=== PATIENT | male | born 1950 | race Caucasian/White ===

== ENCOUNTER 2020-09-22 20:04 | Inpatient (IN) | payer MEDICARE, OTHER ==
[~2020-09-22] VITALS: Ht 165.1 cm; Wt 95.3 kg
[2020-09-22 20:33] LABS: ABG A-A DIFF O2 625.7 mmHg (10-20.0); ABG BASE EXCESS -4.6 mmol/L (-2.0-3.0); ABG CARBOXYHEMOGLOBIN 0.8 % (0.0-1.5); ABG HCO3 21.5 mmol/L (22.0-26.0); ABG METHEMOGLOBIN 0.2 % (0.0-1.5); ABG OXYGEN CONTENT 17.8 mL/dL (15.0-23.0); ABG OXYGEN SATURATION 91.8 % (95.0-98.0); ABG OXYHEMOGLOBIN 90.9 % (94.0-100.0); ABG PCO2 30 mmHg (35-45); ABG PH 7.437 (7.35-7.450); ABG TOTAL HEMOGLOBIN 13.9 G/dL (12.0-18.0); PO2, ARTERIAL BG 59.1 mmHg (75.0-83.0); SOURCE, BLOOD GAS ARTERIAL; TEMPERATURE, FAHRENHEIT, BG 97.5 FAHREN (96.0-98.6)
[2020-09-22 20:34] LABS: O2 DEVICE,BLOOD GAS NRB (ROOM AIR); SITE, BLOOD GAS LFT BRACHIAL
[2020-09-22 20:36] LABS: BASOPHILS % (AUTO) 0.5 % (0.0-2.0); EOSINOPHILS % (AUTO) 0.1 % (1.0-6.0); HEMATOCRIT 38.5 % (41-53); LYMPHOCYTES # (AUTO) 0.5 K/uL (1.0-4.8); LYMPHOCYTES % (AUTO) 7.2 % (22.0-44.0); MEAN CORPUSCULAR HEMOGLOBIN 30.7 pg (26.0-34.0); MEAN CORPUSCULAR HGB CONC 33.7 G/dL (31.0-37.0); MEAN CORPUSCULAR VOLUME 91 fL (80-100); MONOCYTES # (AUTO) 0.3 K/uL (0.1-1.0); MONOCYTES % (AUTO) 4.8 % (2.0-9.0); PLATELET COUNT (AUTO) 191 K/uL (150-450); RED BLOOD CELL COUNT(AUTO) 4.22 MIL/uL (4.50-5.90); RED CELL DISTRIBUTION WIDTH 14.1 % (11.5-14.5)
[2020-09-22] MEDS: ACETAMINOPHEN 325 MG TABLET PO ONE ×2 (20:45→21:22)
[2020-09-22] MEDS ORDERED: DEXAMETHASONE SOD PHOS 4 MG/ML VIAL IVP ONE (20:45)
[2020-09-22] MEDS ORDERED: SODIUM CHLORIDE 0.9% 250 ML IV ONE (20:45)
[2020-09-22 20:54] LABS: NEUTROPHILS % (AUTO) 87.4 % (40.0-70.0)
[2020-09-22 21:07] LABS: COVID AG,FIA SOURCE NASOPHARYNGEAL
[2020-09-22 21:28] LABS: ALBUMIN 2.7 g/dL (3.4-5.0); BILIRUBIN,TOTAL 1.2 mg/dL (0.1-1.0); C-REACTIVE PROTEIN QUANT 22.96 mg/dL (0.00-0.30); CREATININE 2.94 mg/dL (0.60-1.30); POTASSIUM 4.3 mmol/L (3.5-5.1); TOTAL PROTEIN, SERUM 7.1 g/dL (6.4-8.2)
[2020-09-22 21:52] LABS: INFLUENZA TYPE A NEGATIVE FOR TYPE A (NEGATIVE); INFLUENZA TYPE B NEGATIVE FOR TYPE B (NEGATIVE)
[2020-09-22] MEDS ORDERED: DEXTROSE 50%-WATER 25 GM/50 ML SYRINGE IVP PRN (22:00)
[2020-09-22] MEDS ORDERED: ALBUTEROL SULFATE HFA 90 MCG/PUFF 8 GM INHALER IH PRN (22:00)
[2020-09-22] MEDS ORDERED: ONDANSETRON HCL 4 MG/2 ML VIAL IVP PRN (22:00)
[2020-09-22] MEDS ORDERED: ACETAMINOPHEN 325 MG TABLET PO PRN ×2 (22:00)
[2020-09-22] MEDS ORDERED: 0.9% SODIUM CHLORIDE 10 ML SYRINGE IVP PRN (22:00)
[2020-09-22] MEDS ORDERED: SODIUM CHLORIDE 0.9% 1,000 ML IV ONE (22:00)
[2020-09-22] MEDS ORDERED: REMDESIVIR 200 MG in SODIUM CHLORIDE 0.9% 250 ML IV ONE (23:00)
[2020-09-22] MEDS: APIXABAN 2.5 MG TABLET PO SCH (23:06)
[2020-09-22] MEDS: AZITHROMYCIN 500 MG/NS 250 ML IV SCH (23:06)
[2020-09-23] VITALS (7 sets, daily range): BP systolic 115–147; BP diastolic 54–88
[2020-09-23] MEDS: INSULIN LISPRO 100 UNITS/ML SQ PRN ×4 (06:22→20:08)
[2020-09-23 06:46] LABS: BASOPHILS % (AUTO) 0.3 % (0.0-2.0); EOSINOPHILS % (AUTO) 0 % (1.0-6.0); HEMATOCRIT 35.5 % (41-53); HEMOGLOBIN 12.1 g/dL (13.5-17.5); LYMPHOCYTES # (AUTO) 0.5 K/uL (1.0-4.8); LYMPHOCYTES % (AUTO) 7.4 % (22.0-44.0); MEAN CORPUSCULAR HEMOGLOBIN 31.3 pg (26.0-34.0); MEAN CORPUSCULAR HGB CONC 34.1 G/dL (31.0-37.0); MEAN CORPUSCULAR VOLUME 92 fL (80-100); MONOCYTES # (AUTO) 0.2 K/uL (0.1-1.0); MONOCYTES % (AUTO) 3.1 % (2.0-9.0); NEUTROPHILS # (AUTO) 6.4 K/uL (1.8-7.7); PLATELET COUNT (AUTO) 178 K/uL (150-450); RED BLOOD CELL COUNT(AUTO) 3.87 MIL/uL (4.50-5.90); RED CELL DISTRIBUTION WIDTH 14.4 % (11.5-14.5)
[2020-09-23 07:09] LABS: NEUTROPHILS % (AUTO) 89.2 % (40.0-70.0)
[2020-09-23 07:30] LABS: CALCIUM, TOTAL 7.8 mg/dL (8.8-10.5); CREATININE 2.56 mg/dL (0.60-1.30); POTASSIUM 4.2 mmol/L (3.5-5.1)
[2020-09-23] MEDS: APIXABAN 2.5 MG TABLET PO SCH ×2 (08:56→20:09)
[2020-09-23] MEDS: FAMOTIDINE 20 MG TABLET PO SCH (08:56)
[2020-09-23] MEDS: DOCUSATE SODIUM 100 MG CAPSULE PO SCH ×2 (09:00→20:09)
[2020-09-23] MEDS: SODIUM CHLORIDE 0.9% 1,000 ML IV SCH ×2 (10:24→23:37)
[2020-09-23 16:40] LABS: GLUCOMETER DEV NAME(LOC) 5N.3; GLUCOSE,POINT OF CARE 178 MG/DL (70-110)
[2020-09-23 16:40] LABS: GLUCOMETER DEV NAME(LOC) 5N.3; GLUCOSE,POINT OF CARE 217 MG/DL (70-110)
[2020-09-23 16:40] LABS: GLUCOMETER DEV NAME(LOC) 5N.3; GLUCOSE,POINT OF CARE 226 MG/DL (70-110)
[2020-09-23] MEDS: ZINC SULFATE 220 MG CAPSULE PO SCH (20:09)
[2020-09-23] MEDS: CHOLECALCIFEROL (VIT D3) 1,000 UNITS [25 MCG] TABLET PO SCH (20:09)
[2020-09-23] MEDS: ASCORBIC ACID 500 MG TABLET PO SCH (20:09)
[2020-09-23] MEDS: DEXAMETHASONE SOD PHOS 4 MG/ML VIAL IVP SCH (20:10)
[2020-09-23] MEDS: AZITHROMYCIN 500 MG/NS 250 ML IV SCH (20:12)
[2020-09-23] MEDS: BENZONATATE 100 MG CAPSULE PO PRN (20:59)
[2020-09-23] MEDS: ACETAMINOPHEN 325 MG TABLET PO PRN (20:59)
[2020-09-23] MEDS ORDERED: REMDESIVIR 100 MG in SODIUM CHLORIDE 0.9% 250 ML IV SCH (23:00)
[2020-09-23 23:13] LABS: GLUCOMETER DEV NAME(LOC) 5N.1B; GLUCOSE,POINT OF CARE 169 MG/DL (70-110)
[2020-09-23 23:13] LABS: GLUCOMETER DEV NAME(LOC) 5N.1B; GLUCOSE,POINT OF CARE 217 MG/DL (70-110)
[2020-09-23 23:13] LABS: GLUCOMETER DEV NAME(LOC) 5N.1B; GLUCOSE,POINT OF CARE 192 MG/DL (70-110)
[2020-09-24] MEDS: INSULIN LISPRO 100 UNITS/ML SQ PRN ×4 (05:29→21:36)
[2020-09-24 05:37] VITALS: BP 127/70
[2020-09-24 07:25] VITALS: BP 123/67
[2020-09-24 07:38] LABS: GLUCOMETER DEV NAME(LOC) 5N.1B; GLUCOSE,POINT OF CARE 171 MG/DL (70-110)
[2020-09-24 08:11] LABS: ALBUMIN 2.2 g/dL (3.4-5.0); BILIRUBIN,TOTAL 0.6 mg/dL (0.1-1.0); CALCIUM, TOTAL 7.6 mg/dL (8.8-10.5); CREATININE 1.56 mg/dL (0.60-1.30); POTASSIUM 4.1 mmol/L (3.5-5.1); TOTAL PROTEIN, SERUM 6.2 g/dL (6.4-8.2)
[2020-09-24] MEDS: ZINC SULFATE 220 MG CAPSULE PO SCH (08:50)
[2020-09-24] MEDS: APIXABAN 2.5 MG TABLET PO SCH ×2 (08:50→20:14)
[2020-09-24] MEDS: ASCORBIC ACID 500 MG TABLET PO SCH (08:50)
[2020-09-24] MEDS: CHOLECALCIFEROL (VIT D3) 1,000 UNITS [25 MCG] TABLET PO SCH (08:50)
[2020-09-24] MEDS: DEXAMETHASONE SOD PHOS 4 MG/ML VIAL IVP SCH (08:51)
[2020-09-24] MEDS: DOCUSATE SODIUM 100 MG CAPSULE PO SCH ×2 (08:51→20:15)
[2020-09-24] MEDS: FAMOTIDINE 20 MG TABLET PO SCH (08:51)
[2020-09-24] MEDS ORDERED: REMDESIVIR 200 MG in SODIUM CHLORIDE 0.9% 250 ML IV ONE (10:00)
[2020-09-24] MEDS ORDERED: VANCOMYCIN HCL 1 GM/D5% WATER 200 ML IV ONE ×2 (10:30→13:00)
[2020-09-24 11:56] VITALS: BP 146/80
[2020-09-24 15:54] VITALS: BP 136/72
[2020-09-24] MEDS: SODIUM CHLORIDE 0.9% 1,000 ML IV SCH (20:14)
[2020-09-24] MEDS: AZITHROMYCIN 500 MG/NS 250 ML IV SCH (20:17)
[2020-09-24 20:29] VITALS: BP 155/82
[2020-09-24 20:49] LABS: GLUCOMETER DEV NAME(LOC) 5N.1B; GLUCOSE,POINT OF CARE 189 MG/DL (70-110)
[2020-09-24 20:49] LABS: GLUCOMETER DEV NAME(LOC) 5S.1; GLUCOSE,POINT OF CARE 225 MG/DL (70-110)
[2020-09-24 20:50] LABS: GLUCOMETER DEV NAME(LOC) 5N.1B; GLUCOSE,POINT OF CARE 214 MG/DL (70-110)
[2020-09-24] MEDS: ACETAMINOPHEN 325 MG TABLET PO PRN (21:39)
[2020-09-25 00:33] VITALS: BP 128/64
[2020-09-25 05:29] VITALS: BP 135/72
[2020-09-25] MEDS: BENZONATATE 100 MG CAPSULE PO PRN ×2 (06:15→16:10)
[2020-09-25] MEDS: SODIUM CHLORIDE 0.9% 1,000 ML IV SCH ×2 (06:15→18:32)
[2020-09-25] MEDS: INSULIN LISPRO 100 UNITS/ML SQ PRN ×4 (06:24→21:30)
[2020-09-25 07:10] VITALS: BP 131/66
[2020-09-25 08:18] LABS: ALBUMIN 2.2 g/dL (3.4-5.0); BILIRUBIN,TOTAL 0.7 mg/dL (0.1-1.0); C-REACTIVE PROTEIN QUANT 8.75 mg/dL (0.00-0.30); CALCIUM, TOTAL 7.7 mg/dL (8.8-10.5); CREATININE 1.38 mg/dL (0.60-1.30); POTASSIUM 3.9 mmol/L (3.5-5.1); TOTAL PROTEIN, SERUM 6.4 g/dL (6.4-8.2)
[2020-09-25] MEDS: VANCOMYCIN HCL 1.25 GM in DEXTROSE 5%-WATER 250 ML IV SCH (08:57)
[2020-09-25] MEDS: DEXAMETHASONE SOD PHOS 4 MG/ML VIAL IVP SCH (08:57)
[2020-09-25] MEDS: APIXABAN 2.5 MG TABLET PO SCH (08:58)
[2020-09-25] MEDS: ZINC SULFATE 220 MG CAPSULE PO SCH (08:58)
[2020-09-25] MEDS: FAMOTIDINE 20 MG TABLET PO SCH (08:58)
[2020-09-25] MEDS: ASCORBIC ACID 500 MG TABLET PO SCH (08:58)
[2020-09-25] MEDS: CHOLECALCIFEROL (VIT D3) 1,000 UNITS [25 MCG] TABLET PO SCH (08:58)
[2020-09-25] MEDS: DOCUSATE SODIUM 100 MG CAPSULE PO SCH ×2 (08:58→20:28)
[2020-09-25] MEDS: REMDESIVIR 100 MG in SODIUM CHLORIDE 0.9% 250 ML IV SCH (10:11)
[2020-09-25 10:22] VITALS: BP 142/84
[2020-09-25 12:59] LABS: GLUCOMETER DEV NAME(LOC) 5N.1B; GLUCOSE,POINT OF CARE 187 MG/DL (70-110)
[2020-09-25 15:21] VITALS: BP 138/78
[2020-09-25 17:45] LABS: GLUCOMETER DEV NAME(LOC) 5N.1B; GLUCOSE,POINT OF CARE 165 MG/DL (70-110)
[2020-09-25] MEDS: ACETAMINOPHEN 325 MG TABLET PO PRN (18:32)
[2020-09-25] MEDS: APIXABAN 5 MG TABLET PO SCH (20:28)
[2020-09-25 20:38] LABS: GLUCOMETER DEV NAME(LOC) 5N.3; GLUCOSE,POINT OF CARE 162 MG/DL (70-110)
[2020-09-25] MEDS: AZITHROMYCIN 500 MG/NS 250 ML IV SCH (21:37)
[2020-09-26 00:28] LABS: GLUCOMETER DEV NAME(LOC) 5N.1B; GLUCOSE,POINT OF CARE 222 MG/DL (70-110)
[2020-09-26] MEDS: BENZONATATE 100 MG CAPSULE PO PRN (02:39)
[2020-09-26 03:53] VITALS: BP 133/72
[2020-09-26 08:02] LABS: GLUCOMETER DEV NAME(LOC) 5N.1B; GLUCOSE,POINT OF CARE 101 MG/DL (70-110)
[2020-09-26 08:27] LABS: ALBUMIN 2.4 g/dL (3.4-5.0); BILIRUBIN,TOTAL 0.9 mg/dL (0.1-1.0); C-REACTIVE PROTEIN QUANT 18.61 mg/dL (0.00-0.30); CREATININE 1.23 mg/dL (0.60-1.30); POTASSIUM 3.7 mmol/L (3.5-5.1); TOTAL PROTEIN, SERUM 6.5 g/dL (6.4-8.2)
[2020-09-26] MEDS: ASCORBIC ACID 500 MG TABLET PO SCH (09:03)
[2020-09-26] MEDS: DOCUSATE SODIUM 100 MG CAPSULE PO SCH ×2 (09:03→21:12)
[2020-09-26] MEDS: VANCOMYCIN HCL 1.25 GM in DEXTROSE 5%-WATER 250 ML IV SCH (09:03)
[2020-09-26] MEDS: DEXAMETHASONE SOD PHOS 4 MG/ML VIAL IVP SCH (09:03)
[2020-09-26] MEDS: APIXABAN 5 MG TABLET PO SCH ×2 (09:03→21:12)
[2020-09-26] MEDS: FAMOTIDINE 20 MG TABLET PO SCH (09:03)
[2020-09-26] MEDS: CHOLECALCIFEROL (VIT D3) 1,000 UNITS [25 MCG] TABLET PO SCH (09:04)
[2020-09-26] MEDS: ZINC SULFATE 220 MG CAPSULE PO SCH (09:04)
[2020-09-26] MEDS: SODIUM CHLORIDE 0.9% 1,000 ML IV SCH ×2 (09:04→23:44)
[2020-09-26 09:11] VITALS: BP 135/71
[2020-09-26] MEDS: REMDESIVIR 100 MG in SODIUM CHLORIDE 0.9% 250 ML IV SCH (10:52)
[2020-09-26 12:00] VITALS: BP 106/62
[2020-09-26] MEDS: INSULIN LISPRO 100 UNITS/ML SQ PRN (12:50)
[2020-09-26 16:00] VITALS: BP 130/73
[2020-09-26 16:05] LABS: GLUCOSE,POINT OF CARE 161 MG/DL (70-110)
[2020-09-26 19:39] LABS: GLUCOSE,POINT OF CARE 118 MG/DL (70-110)
[2020-09-26 20:00] VITALS: BP 145/76
[2020-09-26] MEDS: AZITHROMYCIN 500 MG/NS 250 ML IV SCH (21:13)
[2020-09-27] VITALS: BP 141/88
[2020-09-27] MEDS: BENZONATATE 100 MG CAPSULE PO PRN (02:54)
[2020-09-27] MEDS: LORazepam 2 MG/ML VIAL IVP PRN (04:00)
[2020-09-27] MEDS ORDERED: RAPID SEQUENCE KIT [RSI] 1 EACH KIT MISC ONE ×2 (04:13→05:12)
[2020-09-27] MEDS ORDERED: SUCCINYLCHOLINE CHLORIDE 20 MG/ML 10 ML VIAL ONE ×2 (04:33→05:13)
[2020-09-27 04:45] LABS: ABG A-A DIFF O2 635.3 mmHg (10-20.0); ABG BASE EXCESS -9.2 mmol/L (-2.0-3.0); ABG CARBOXYHEMOGLOBIN 1.1 % (0.0-1.5); ABG HCO3 17.1 mmol/L (22.0-26.0); ABG METHEMOGLOBIN 0.3 % (0.0-1.5); ABG OXYGEN CONTENT 13.9 mL/dL (15.0-23.0); ABG OXYHEMOGLOBIN 72.7 % (94.0-100.0); ABG PCO2 38 mmHg (35-45); ABG TOTAL HEMOGLOBIN 13.6 G/dL (12.0-18.0); PO2, ARTERIAL BG 41.1 mmHg (75.0-83.0); SOURCE, BLOOD GAS ARTERIAL; TEMPERATURE, FAHRENHEIT, BG 97.5 FAHREN (96.0-98.6)
[2020-09-27 04:46] LABS: ABG OXYGEN SATURATION 73.7 % (95.0-98.0); INSPIRATORY TIME, BG 0.9 SEC; O2 DEVICE,BLOOD GAS BIPAP (ROOM AIR); SITE, BLOOD GAS RT BRACHIAL; SPONTANEOUS VT, BG 1205 ml
[2020-09-27] MEDS ORDERED: SODIUM CHLORIDE 0.9% 500 ML IV ONE ×3 (05:08→22:30)
[2020-09-27] MEDS ORDERED: NOREPINEPHRINE 4 MG/D5%-WATER 250 ML IV ONE (05:27)
[2020-09-27] MEDS: NOREPINEPHRINE 4 MG/D5%-WATER 250 ML IV PRN ×3 (05:30→16:22)
[2020-09-27] MEDS ORDERED: MIDAZOLAM HCL 2 MG/2 ML VIAL IVP PRN (05:30)
[2020-09-27 05:46] LABS: BASOPHILS % (AUTO) 0.2 % (0.0-2.0); EOSINOPHILS % (AUTO) 0.1 % (1.0-6.0); HEMATOCRIT 37.7 % (41-53); HEMOGLOBIN 12.5 g/dL (13.5-17.5); LYMPHOCYTES # (AUTO) 0.8 K/uL (1.0-4.8); LYMPHOCYTES % (AUTO) 5.7 % (22.0-44.0); MEAN CORPUSCULAR HGB CONC 33.3 G/dL (31.0-37.0); MEAN CORPUSCULAR VOLUME 93 fL (80-100); MONOCYTES # (AUTO) 0.5 K/uL (0.1-1.0); MONOCYTES % (AUTO) 3.3 % (2.0-9.0); NEUTROPHILS # (AUTO) 12.5 K/uL (1.8-7.7); PLATELET COUNT (AUTO) 250 K/uL (150-450); RED BLOOD CELL COUNT(AUTO) 4.04 MIL/uL (4.50-5.90); RED CELL DISTRIBUTION WIDTH 14.9 % (11.5-14.5)
[2020-09-27 05:47] LABS: NEUTROPHILS % (AUTO) 90.7 % (40.0-70.0)
[2020-09-27 06:19] LABS: ALBUMIN 2.2 g/dL (3.4-5.0); CALCIUM, TOTAL 7.6 mg/dL (8.8-10.5); CREATININE 1.47 mg/dL (0.60-1.30); TOTAL PROTEIN, SERUM 6.3 g/dL (6.4-8.2); VANCOMYCIN,RANDOM 4.4 mcg/mL (25.0-50.0)
[2020-09-27 06:46] LABS: C-REACTIVE PROTEIN QUANT 29.03 mg/dL (0.00-0.30)
[2020-09-27] MEDS ORDERED: ROCURONIUM BROMIDE 10 MG/ML 5 ML VIAL IVP ONE (07:00)
[2020-09-27] MEDS ORDERED: NOREPINEPHRINE 4 MG/D5%-WATER 250 ML IV PRN (07:00)
[2020-09-27 08:00] VITALS: BP 133/62
[2020-09-27 08:27] LABS: ABG A-A DIFF O2 595.2 mmHg (10-20.0); ABG BASE EXCESS -11.2 mmol/L (-2.0-3.0); ABG CARBOXYHEMOGLOBIN 1.2 % (0.0-1.5); ABG HCO3 15.3 mmol/L (22.0-26.0); ABG METHEMOGLOBIN 0.3 % (0.0-1.5); ABG OXYGEN CONTENT 16.9 mL/dL (15.0-23.0); ABG OXYGEN SATURATION 89.1 % (95.0-98.0); ABG OXYHEMOGLOBIN 87.8 % (94.0-100.0); ABG PCO2 56 mmHg (35-45); ABG PH 7.124 (7.35-7.450); ABG TOTAL HEMOGLOBIN 13.7 G/dL (12.0-18.0); SOURCE, BLOOD GAS ARTERIAL; TEMPERATURE, FAHRENHEIT, BG 98.3 FAHREN (96.0-98.6)
[2020-09-27 08:28] LABS: O2 DEVICE,BLOOD GAS VENTILATOR (ROOM AIR); PEEP,BG 10 cm H2O; SITE, BLOOD GAS ARTERIAL LINE; SPONTANEOUS VT, BG 444 ml; VT, ABG 450 ml
[2020-09-27] MEDS: PROPOFOL 1000 MG/ISO-OSM 100 ML IV PRN ×3 (08:41→15:58)
[2020-09-27] MEDS: VANCOMYCIN HCL 1.25 GM in DEXTROSE 5%-WATER 250 ML IV SCH (08:43)
[2020-09-27] MEDS: FentaNYL CIT 1000MCG/D5%-WATER 100 ML IV PRN ×3 (09:07→18:53)
[2020-09-27 09:30] LABS: GLUCOSE,POINT OF CARE 163 MG/DL (70-110)
[2020-09-27 09:30] LABS: GLUCOSE,POINT OF CARE 150 MG/DL (70-110)
[2020-09-27] MEDS: DEXAMETHASONE SOD PHOS 4 MG/ML VIAL IVP SCH (09:48)
[2020-09-27 10:05] LABS: BASOPHILS % (AUTO) 0.1 % (0.0-2.0); EOSINOPHILS % (AUTO) 0 % (1.0-6.0); HEMATOCRIT 39.5 % (41-53); HEMOGLOBIN 12.7 g/dL (13.5-17.5); LYMPHOCYTES # (AUTO) 0.3 K/uL (1.0-4.8); LYMPHOCYTES % (AUTO) 2.1 % (22.0-44.0); MEAN CORPUSCULAR HGB CONC 32.1 G/dL (31.0-37.0); MEAN CORPUSCULAR VOLUME 94 fL (80-100); MONOCYTES # (AUTO) 0.6 K/uL (0.1-1.0); MONOCYTES % (AUTO) 3.5 % (2.0-9.0); NEUTROPHILS # (AUTO) 15.2 K/uL (1.8-7.7); NEUTROPHILS % (AUTO) 94.3 % (40.0-70.0); PLATELET COUNT (AUTO) 257 K/uL (150-450); RED BLOOD CELL COUNT(AUTO) 4.21 MIL/uL (4.50-5.90); RED CELL DISTRIBUTION WIDTH 15.8 % (11.5-14.5)
[2020-09-27] MEDS: ZINC SULFATE 220 MG CAPSULE PO SCH (10:12)
[2020-09-27] MEDS: FAMOTIDINE 20 MG TABLET PO SCH (10:12)
[2020-09-27] MEDS: DOCUSATE SODIUM 100 MG CAPSULE PO SCH ×2 (10:12→21:41)
[2020-09-27] MEDS: ASCORBIC ACID 500 MG TABLET PO SCH (10:12)
[2020-09-27] MEDS: APIXABAN 5 MG TABLET PO SCH ×2 (10:12→21:41)
[2020-09-27] MEDS: CHOLECALCIFEROL (VIT D3) 1,000 UNITS [25 MCG] TABLET PO SCH (10:12)
[2020-09-27 10:14] LABS: CALCIUM, TOTAL 7.5 mg/dL (8.8-10.5); CREATININE 1.85 mg/dL (0.60-1.30); POTASSIUM 4.6 mmol/L (3.5-5.1)
[2020-09-27] MEDS ORDERED: PHENYLEPHRINE 200 MG/D5%-WATER 250 ML IV PRN (10:15)
[2020-09-27] MEDS: REMDESIVIR 100 MG in SODIUM CHLORIDE 0.9% 250 ML IV SCH (10:18)
[2020-09-27 10:20] LABS: BILIRUBIN,TOTAL 0.9 mg/dL (0.1-1.0); MAGNESIUM 2.1 mg/dL (1.80-2.40); PHOSPHORUS 5.6 mg/dL (2.5-4.9)
[2020-09-27 10:22] LABS: INR 1.7 (0.9-1.1); PROTHROMBIN TIME 16.9 SEC (9.4-11.6)
[2020-09-27] MEDS ORDERED: HEPARIN SODIUM,PORCINE 1,000 UNITS/ML VIAL ONE (11:55)
[2020-09-27 12:00] VITALS: BP 118/52
[2020-09-27] MEDS ORDERED: HEPARIN SODIUM,PORCINE 1,000 UNITS/ML VIAL IVP ONE ×2 (12:00)
[2020-09-27] MEDS: INSULIN LISPRO 100 UNITS/ML SQ PRN ×2 (12:17→17:42)
[2020-09-27] MEDS: SODIUM CHLORIDE 0.9% 1,000 ML IV SCH (14:53)
[2020-09-27 16:00] VITALS: BP 131/53
[2020-09-27 16:19] LABS: APPEARANCE,URINE TURBID (CLEAR); BILIRUBIN,URINE NEGATIVE (NEGATIVE); GLUCOSE, URINE (UA) 250 mg/dL (NEGATIVE); KETONES,URINE NEGATIVE (NEGATIVE); LEUKOCYTE ESTERASE ,URINE NEGATIVE (NEGATIVE); NITRATE,URINE NEGATIVE (NEGATIVE); OCCULT BLOOD,URINE LARGE (NEGATIVE); PROTEIN,URINE SEE CONFIRM (NEGATIVE)
[2020-09-27 16:37] LABS: CREATININE,URINE RANDOM 115.1 mg/dL (30.0-125.0); PROTEIN,URINE RANDOM 236 mg/dL (0-11.9); SODIUM,URINE RANDOM 54 mmol/l (20-110); UREA NITROGEN,URINE RANDOM 922 mg/dL (350-1000)
[2020-09-27 17:06] LABS: AMORPHOUS SEDIMENT,UR Moderate /LPF (None Seen); BACTERIA,URINE None Seen /HPF (None Seen); SULFOSALICYLIC ACID,URINE 3+ (Negative); WBC,URINE None Seen /HPF (0-5)
[2020-09-27 18:06] LABS: GLUCOSE,POINT OF CARE 332 MG/DL (70-110)
[2020-09-27 18:06] LABS: GLUCOSE,POINT OF CARE 268 MG/DL (70-110)
[2020-09-27 19:59] LABS: ABG A-A DIFF O2 584.4 mmHg (10-20.0); ABG BASE EXCESS 5.9 mmol/L (-2.0-3.0); ABG CARBOXYHEMOGLOBIN 0.4 % (0.0-1.5); ABG METHEMOGLOBIN 0.3 % (0.0-1.5); ABG OXYGEN CONTENT 13.7 mL/dL (15.0-23.0); ABG OXYGEN SATURATION 87.6 % (95.0-98.0); ABG PH 7.275 (7.35-7.450); ABG TOTAL HEMOGLOBIN 11.2 G/dL (12.0-18.0); PO2, ARTERIAL BG 56.6 mmHg (75.0-83.0); SOURCE, BLOOD GAS ARTERIAL; TEMPERATURE, FAHRENHEIT, BG 98.6 FAHREN (96.0-98.6)
[2020-09-27 20:00] VITALS: BP 161/58
[2020-09-27] MEDS ORDERED: VANCOMYCIN HCL 1.25 GM in DEXTROSE 5%-WATER 250 ML IV SCH (20:00)
[2020-09-27] MEDS: EPINEPHrine 2 MG in DEXTROSE 5%-WATER 248 ML IV PRN (20:00)
[2020-09-27] MEDS ORDERED: CALCIUM CHLORIDE 100 MG/ML 10 ML SYRINGE IVP ONE (20:00)
[2020-09-27] MEDS ORDERED: SODIUM BICARBONATE [ADULT] 8.4% 50 MEQ/50 ML SYRINGE IVP ONE (20:00)
[2020-09-27 20:01] LABS: ABG PCO2 72 mmHg (35-45); O2 DEVICE,BLOOD GAS VENTILATOR (ROOM AIR); PEEP,BG 10 cm H2O; SITE, BLOOD GAS ARTERIAL LINE; VT, ABG 450 ml
[2020-09-27 20:14] LABS: BASOPHILS % (AUTO) 0.2 % (0.0-2.0); EOSINOPHILS % (AUTO) 0.1 % (1.0-6.0); HEMATOCRIT 35.3 % (41-53); HEMOGLOBIN 11.4 g/dL (13.5-17.5); LYMPHOCYTES % (AUTO) 7.2 % (22.0-44.0); MEAN CORPUSCULAR HGB CONC 32.2 G/dL (31.0-37.0); MEAN CORPUSCULAR VOLUME 93 fL (80-100); MONOCYTES # (AUTO) 0.4 K/uL (0.1-1.0); MONOCYTES % (AUTO) 2.4 % (2.0-9.0); PLATELET COUNT (AUTO) 239 K/uL (150-450); RED BLOOD CELL COUNT(AUTO) 3.79 MIL/uL (4.50-5.90)
[2020-09-27 20:18] LABS: NEUTROPHILS % (AUTO) 90.1 % (40.0-70.0)
[2020-09-27 20:33] LABS: ANION GAP 10 mmol/L (8-16); CALCIUM, TOTAL 8.8 mg/dL (8.8-10.5); CARBON DIOXIDE 27 mmol/L (22-29); CHLORIDE 108 mmol/L (98-107); CREATININE 2.46 mg/dL (0.60-1.30); GLOMERULAR FILTR. RATE CALC 26 mL/min (>60); GLUCOSE,RANDOM 382 mg/dL (70-110); POTASSIUM 3.6 mmol/L (3.5-5.1); SODIUM SERUM 145 mmol/L (136-145); UREA NITROGEN, BLOOD 49 mg/dL (7-18)
[2020-09-27 21:10] LABS: LACTIC ACID 4.8 mmol/L (0.4-2.0)
[2020-09-27] MEDS ORDERED: DEXTROSE 50%-WATER 25 GM/50 ML SYRINGE IVP PRN (21:30)
[2020-09-27 21:47] LABS: ABG A-A DIFF O2 581.6 mmHg (10-20.0); ABG BASE EXCESS -3.2 mmol/L (-2.0-3.0); ABG CARBOXYHEMOGLOBIN 0.5 % (0.0-1.5); ABG HCO3 21.9 mmol/L (22.0-26.0); ABG METHEMOGLOBIN 0.3 % (0.0-1.5); ABG OXYGEN SATURATION 97.2 % (95.0-98.0); ABG OXYHEMOGLOBIN 96.4 % (94.0-100.0); ABG PCO2 41 mmHg (35-45); ABG PH 7.353 (7.35-7.450); ABG TOTAL HEMOGLOBIN 11.7 G/dL (12.0-18.0); O2 DEVICE,BLOOD GAS VENTILATOR (ROOM AIR); PO2, ARTERIAL BG 90.3 mmHg (75.0-83.0); SITE, BLOOD GAS ARTERIAL LINE; SOURCE, BLOOD GAS ARTERIAL; TEMPERATURE, FAHRENHEIT, BG 98.6 FAHREN (96.0-98.6); VT, ABG 475 ml
[2020-09-27 21:48] LABS: PEEP,BG 12 cm H2O
[2020-09-27] MEDS: INSULIN GLARGINE,HUM.REC.ANLOG 100 UNITS/ML SQ SCH (21:51)
[2020-09-27] MEDS: AZITHROMYCIN 500 MG/NS 250 ML IV SCH (22:22)
[2020-09-27 23:04] LABS: GLUCOSE,POINT OF CARE 276 MG/DL (70-110)
[2020-09-27] MEDS ORDERED: *CLINICAL-MEROPENEM DOSING CLINICAL ONE (23:45)
[2020-09-28] VITALS: BP 127/48
[2020-09-28] MEDS: MEROPENEM 1 GM in SODIUM CHLORIDE 0.9% 100 ML IV SCH ×2 (00:39→13:07)
[2020-09-28] MEDS: INSULIN LISPRO 100 UNITS/ML SQ PRN ×4 (01:32→23:24)
[2020-09-28] MEDS: EPINEPHrine 2 MG in DEXTROSE 5%-WATER 248 ML IV PRN ×2 (02:17→08:13)
[2020-09-28 04:00] VITALS: BP 214/70
[2020-09-28] MEDS ORDERED: SODIUM CHLORIDE 0.9% 250 ML IV ONE (04:04)
[2020-09-28 04:33] LABS: GLUCOSE,POINT OF CARE 341 MG/DL (70-110)
[2020-09-28] MEDS: SODIUM CHLORIDE 0.9% 1,000 ML IV SCH ×2 (04:49→19:23)
[2020-09-28] MEDS: PROPOFOL 1000 MG/ISO-OSM 100 ML IV PRN ×5 (05:46→22:35)
[2020-09-28 06:36] LABS: BASOPHILS % (AUTO) 0.1 % (0.0-2.0); EOSINOPHILS % (AUTO) 0 % (1.0-6.0); HEMATOCRIT 32.8 % (41-53); HEMOGLOBIN 10.9 g/dL (13.5-17.5); LYMPHOCYTES # (AUTO) 0.3 K/uL (1.0-4.8); LYMPHOCYTES % (AUTO) 2.7 % (22.0-44.0); MEAN CORPUSCULAR HEMOGLOBIN 31.4 pg (26.0-34.0); MEAN CORPUSCULAR HGB CONC 33.2 G/dL (31.0-37.0); MEAN CORPUSCULAR VOLUME 94 fL (80-100); MONOCYTES # (AUTO) 0.3 K/uL (0.1-1.0); MONOCYTES % (AUTO) 2.7 % (2.0-9.0); NEUTROPHILS # (AUTO) 11.4 K/uL (1.8-7.7); PLATELET COUNT (AUTO) 217 K/uL (150-450); RED BLOOD CELL COUNT(AUTO) 3.47 MIL/uL (4.50-5.90); RED CELL DISTRIBUTION WIDTH 14.9 % (11.5-14.5)
[2020-09-28 07:06] LABS: NEUTROPHILS % (AUTO) 94.5 % (40.0-70.0)
[2020-09-28 07:23] LABS: ALBUMIN 1.6 g/dL (3.4-5.0); BILIRUBIN,TOTAL 1.3 mg/dL (0.1-1.0); CALCIUM, TOTAL 7.5 mg/dL (8.8-10.5); CREATININE 2.27 mg/dL (0.60-1.30); POTASSIUM 3.9 mmol/L (3.5-5.1)
[2020-09-28] MEDS ORDERED: VANCOMYCIN HCL 1 GM/D5% WATER 200 ML IV PRN (07:45)
[2020-09-28 08:00] VITALS: BP 114/45
[2020-09-28] MEDS: ZINC SULFATE 220 MG CAPSULE PO SCH (08:14)
[2020-09-28] MEDS: ASCORBIC ACID 500 MG TABLET PO SCH (08:14)
[2020-09-28] MEDS: DOCUSATE SODIUM 100 MG CAPSULE PO SCH ×2 (08:14→20:45)
[2020-09-28] MEDS: FAMOTIDINE 20 MG TABLET PO SCH (08:14)
[2020-09-28] MEDS: CHOLECALCIFEROL (VIT D3) 1,000 UNITS [25 MCG] TABLET PO SCH (08:14)
[2020-09-28] MEDS: APIXABAN 5 MG TABLET PO SCH ×2 (08:14→20:45)
[2020-09-28] MEDS: DEXAMETHASONE SOD PHOS 4 MG/ML VIAL IVP SCH (08:15)
[2020-09-28] MEDS: INSULIN GLARGINE,HUM.REC.ANLOG 100 UNITS/ML SQ SCH ×2 (08:19→20:45)
[2020-09-28 08:22] LABS: C-REACTIVE PROTEIN QUANT 28.04 mg/dL (0.00-0.30)
[2020-09-28 08:28] LABS: GLUCOSE,POINT OF CARE 277 MG/DL (70-110)
[2020-09-28] MEDS: REMDESIVIR 100 MG in SODIUM CHLORIDE 0.9% 250 ML IV SCH (10:42)
[2020-09-28 11:47] LABS: ABG A-A DIFF O2 519.4 mmHg (10-20.0); ABG BASE EXCESS -3.5 mmol/L (-2.0-3.0); ABG CARBOXYHEMOGLOBIN 0.3 % (0.0-1.5); ABG HCO3 21.8 mmol/L (22.0-26.0); ABG METHEMOGLOBIN 0.2 % (0.0-1.5); ABG OXYGEN CONTENT 15.3 mL/dL (15.0-23.0); ABG OXYGEN SATURATION 98.6 % (95.0-98.0); ABG OXYHEMOGLOBIN 98.1 % (94.0-100.0); ABG PCO2 39 mmHg (35-45); ABG PH 7.363 (7.35-7.450); ABG TOTAL HEMOGLOBIN 10.9 G/dL (12.0-18.0); O2 DEVICE,BLOOD GAS VENTILATOR (ROOM AIR); PEEP,BG 12 cm H2O; PO2, ARTERIAL BG 154.2 mmHg (75.0-83.0); SITE, BLOOD GAS ARTERIAL LINE; SOURCE, BLOOD GAS ARTERIAL; TEMPERATURE, FAHRENHEIT, BG 98.6 FAHREN (96.0-98.6); VT, ABG 475 ml
[2020-09-28 12:00] VITALS: BP 132/51
[2020-09-28 16:00] VITALS: BP 121/44
[2020-09-28] MEDS ORDERED: EPINEPHrine 1:10,000 [1 MG/10 ML] SYRINGE ONE (17:31)
[2020-09-28] MEDS ORDERED: SODIUM BICARBONATE [ADULT] 8.4% 50 MEQ/50 ML SYRINGE IVP ONE (17:31)
[2020-09-28] MEDS ORDERED: ATROPINE SULFATE 0.1 MG/ML 10 ML SYRINGE IVP ONE (17:31)
[2020-09-28 19:16] LABS: GLUCOSE,POINT OF CARE 238 MG/DL (70-110)
[2020-09-28 19:17] LABS: GLUCOSE,POINT OF CARE 226 MG/DL (70-110)
[2020-09-28 20:00] VITALS: BP 143/48
[2020-09-28] MEDS: VANCOMYCIN HCL 750 MG in DEXTROSE 5%-WATER 250 ML IV SCH (21:21)
[2020-09-28] MEDS: AZITHROMYCIN 500 MG/NS 250 ML IV SCH (22:33)
[2020-09-28] MEDS: FentaNYL CIT 1000MCG/D5%-WATER 100 ML IV PRN (23:24)
[2020-09-28 23:44] LABS: GLUCOSE,POINT OF CARE 298 MG/DL (70-110)
[2020-09-29] VITALS: BP 139/51
[2020-09-29] MEDS: MEROPENEM 1 GM in SODIUM CHLORIDE 0.9% 100 ML IV SCH ×2 (00:20→12:14)
[2020-09-29 04:00] VITALS: BP 159/59
[2020-09-29] MEDS: PROPOFOL 1000 MG/ISO-OSM 100 ML IV PRN ×5 (04:44→22:05)
[2020-09-29 06:00] LABS: BASOPHILS % (AUTO) 0.1 % (0.0-2.0); EOSINOPHILS % (AUTO) 0 % (1.0-6.0); HEMATOCRIT 31.6 % (41-53); HEMOGLOBIN 10.4 g/dL (13.5-17.5); LYMPHOCYTES # (AUTO) 0.3 K/uL (1.0-4.8); LYMPHOCYTES % (AUTO) 2.2 % (22.0-44.0); MEAN CORPUSCULAR HEMOGLOBIN 30.5 pg (26.0-34.0); MEAN CORPUSCULAR HGB CONC 33.1 G/dL (31.0-37.0); MEAN CORPUSCULAR VOLUME 92 fL (80-100); MONOCYTES # (AUTO) 0.4 K/uL (0.1-1.0); MONOCYTES % (AUTO) 3.3 % (2.0-9.0); NEUTROPHILS # (AUTO) 10.9 K/uL (1.8-7.7); PLATELET COUNT (AUTO) 219 K/uL (150-450); RED BLOOD CELL COUNT(AUTO) 3.42 MIL/uL (4.50-5.90); RED CELL DISTRIBUTION WIDTH 15.2 % (11.5-14.5)
[2020-09-29 06:13] LABS: ALBUMIN 1.5 g/dL (3.4-5.0); BILIRUBIN,TOTAL 1.2 mg/dL (0.1-1.0); C-REACTIVE PROTEIN QUANT 22.78 mg/dL (0.00-0.30); CALCIUM, TOTAL 7.4 mg/dL (8.8-10.5); CREATININE 2.07 mg/dL (0.60-1.30); POTASSIUM 3.8 mmol/L (3.5-5.1)
[2020-09-29 06:23] LABS: NEUTROPHILS % (AUTO) 94.4 % (40.0-70.0)
[2020-09-29] MEDS: INSULIN LISPRO 100 UNITS/ML SQ PRN ×3 (06:48→17:41)
[2020-09-29 08:00] VITALS: BP 147/53
[2020-09-29 08:16] LABS: GLUCOSE,POINT OF CARE 264 MG/DL (70-110)
[2020-09-29 08:16] LABS: GLUCOSE,POINT OF CARE 222 MG/DL (70-110)
[2020-09-29] MEDS: EPINEPHrine 2 MG in DEXTROSE 5%-WATER 248 ML IV PRN (09:11)
[2020-09-29] MEDS: VANCOMYCIN HCL 750 MG in DEXTROSE 5%-WATER 250 ML IV SCH ×2 (09:12→20:01)
[2020-09-29] MEDS: ASCORBIC ACID 500 MG TABLET PO SCH (09:20)
[2020-09-29] MEDS: DOCUSATE SODIUM 100 MG CAPSULE PO SCH ×2 (09:20→20:02)
[2020-09-29] MEDS: FAMOTIDINE 20 MG TABLET PO SCH (09:20)
[2020-09-29] MEDS: INSULIN GLARGINE,HUM.REC.ANLOG 100 UNITS/ML SQ SCH ×2 (09:20→20:54)
[2020-09-29] MEDS: APIXABAN 5 MG TABLET PO SCH ×2 (09:21→20:02)
[2020-09-29] MEDS: DEXAMETHASONE SOD PHOS 4 MG/ML VIAL IVP SCH (09:21)
[2020-09-29] MEDS: ZINC SULFATE 220 MG CAPSULE PO SCH (09:21)
[2020-09-29] MEDS: CHOLECALCIFEROL (VIT D3) 1,000 UNITS [25 MCG] TABLET PO SCH (09:21)
[2020-09-29] MEDS: SODIUM CHLORIDE 0.9% 1,000 ML IV SCH ×2 (09:22→23:01)
[2020-09-29 10:46] LABS: ABG A-A DIFF O2 365.5 mmHg (10-20.0); ABG BASE EXCESS -4.5 mmol/L (-2.0-3.0); ABG CARBOXYHEMOGLOBIN 0.4 % (0.0-1.5); ABG METHEMOGLOBIN 0.3 % (0.0-1.5); ABG OXYGEN CONTENT 15.5 mL/dL (15.0-23.0); ABG OXYGEN SATURATION 97.3 % (95.0-98.0); ABG OXYHEMOGLOBIN 96.6 % (94.0-100.0); ABG PCO2 38 mmHg (35-45); ABG PH 7.358 (7.35-7.450); ABG TOTAL HEMOGLOBIN 11.3 G/dL (12.0-18.0); PO2, ARTERIAL BG 93.4 mmHg (75.0-83.0); SOURCE, BLOOD GAS ARTERIAL; TEMPERATURE, FAHRENHEIT, BG 97.8 FAHREN (96.0-98.6)
[2020-09-29 10:48] LABS: O2 DEVICE,BLOOD GAS VENTILATOR (ROOM AIR); PEEP,BG 12 cm H2O; SITE, BLOOD GAS ALINE; VT, ABG 475 ml
[2020-09-29 12:00] VITALS: BP 147/57
[2020-09-29] MEDS: FentaNYL CIT 1000MCG/D5%-WATER 100 ML IV PRN ×2 (12:41→17:42)
[2020-09-29 16:00] VITALS: BP 116/52
[2020-09-29 17:46] LABS: GLUCOSE,POINT OF CARE 272 MG/DL (70-110)
[2020-09-29 20:00] VITALS: BP 116/54
[2020-09-29] MEDS: AMINO ACIDS/PROTEIN HYDROLYS 30 ML TUBE GT SCH (20:01)
[2020-09-29] MEDS: AZITHROMYCIN 500 MG/NS 250 ML IV SCH (20:55)
[2020-09-29 21:14] LABS: GLUCOSE,POINT OF CARE 233 MG/DL (70-110)
[2020-09-29 23:28] LABS: GLUCOSE,POINT OF CARE 235 MG/DL (70-110)
[2020-09-30] VITALS: BP 119/55
[2020-09-30] MEDS: INSULIN LISPRO 100 UNITS/ML SQ PRN ×5 (00:25→23:57)
[2020-09-30 03:46] LABS: GLUCOSE,POINT OF CARE 242 MG/DL (70-110)
[2020-09-30 04:00] VITALS: BP 126/56
[2020-09-30] MEDS: PROPOFOL 1000 MG/ISO-OSM 100 ML IV PRN ×5 (04:39→21:40)
[2020-09-30 07:09] LABS: CALCIUM, TOTAL 7.2 mg/dL (8.8-10.5); CREATININE 1.75 mg/dL (0.60-1.30); VANCOMYCIN,RANDOM 24.7 mcg/mL (25.0-50.0)
[2020-09-30 08:00] VITALS: BP 129/53
[2020-09-30] MEDS: DEXAMETHASONE SOD PHOS 4 MG/ML VIAL IVP SCH (08:26)
[2020-09-30] MEDS: ASCORBIC ACID 500 MG TABLET PO SCH (08:26)
[2020-09-30] MEDS: APIXABAN 5 MG TABLET PO SCH ×2 (08:26→20:21)
[2020-09-30] MEDS: ZINC SULFATE 220 MG CAPSULE PO SCH (08:26)
[2020-09-30] MEDS: FAMOTIDINE 20 MG TABLET PO SCH (08:27)
[2020-09-30] MEDS: AMINO ACIDS/PROTEIN HYDROLYS 30 ML TUBE GT SCH ×3 (08:27→20:21)
[2020-09-30] MEDS: CHOLECALCIFEROL (VIT D3) 1,000 UNITS [25 MCG] TABLET PO SCH (08:27)
[2020-09-30] MEDS: VANCOMYCIN HCL 750 MG in DEXTROSE 5%-WATER 250 ML IV SCH ×2 (08:27→20:19)
[2020-09-30] MEDS: DOCUSATE SODIUM 100 MG CAPSULE PO SCH ×2 (08:27→20:21)
[2020-09-30 09:24] LABS: GLUCOSE,POINT OF CARE 190 MG/DL (70-110)
[2020-09-30] MEDS: INSULIN GLARGINE,HUM.REC.ANLOG 100 UNITS/ML SQ SCH ×2 (09:41→20:23)
[2020-09-30] MEDS: FentaNYL CIT 1000MCG/D5%-WATER 100 ML IV PRN ×2 (09:47→17:01)
[2020-09-30 12:00] VITALS: BP 118/51
[2020-09-30] MEDS: MEROPENEM 1 GM in SODIUM CHLORIDE 0.9% 100 ML IV SCH ×3 (12:15)
[2020-09-30] MEDS ORDERED: SODIUM CHLORIDE 0.9% 250 ML IV ONE (12:28)
[2020-09-30] MEDS: SODIUM CHLORIDE 0.9% 1,000 ML IV SCH (14:25)
[2020-09-30 15:58] LABS: GLUCOSE,POINT OF CARE 224 MG/DL (70-110)
[2020-09-30 16:00] VITALS: BP 114/50
[2020-09-30 18:49] LABS: GLUCOSE,POINT OF CARE 197 MG/DL (70-110)
[2020-09-30 20:00] VITALS: BP 112/51
[2020-09-30 20:05] LABS: GLUCOSE,POINT OF CARE 190 MG/DL (70-110)
[2020-10-01] VITALS: BP 107/43
[2020-10-01 00:05] LABS: GLUCOSE,POINT OF CARE 194 MG/DL (70-110)
[2020-10-01] MEDS: PROPOFOL 1000 MG/ISO-OSM 100 ML IV PRN ×6 (01:54→23:22)
[2020-10-01 04:00] VITALS: BP 117/43
[2020-10-01] MEDS ORDERED: SODIUM CHLORIDE 0.9% 500 ML IV ONE (04:08)
[2020-10-01] MEDS: SODIUM CHLORIDE 0.9% 1,000 ML IV SCH ×2 (05:10→18:34)
[2020-10-01 06:15] LABS: C-REACTIVE PROTEIN QUANT 10.84 mg/dL (0.00-0.30); CALCIUM, TOTAL 7.3 mg/dL (8.8-10.5); CREATININE 1.71 mg/dL (0.60-1.30)
[2020-10-01] MEDS: FentaNYL CIT 1000MCG/D5%-WATER 100 ML IV PRN ×3 (06:17→23:21)
[2020-10-01 08:00] VITALS: BP 112/43
[2020-10-01 08:45] LABS: GLUCOSE,POINT OF CARE 131 MG/DL (70-110)
[2020-10-01] MEDS: AMINO ACIDS/PROTEIN HYDROLYS 30 ML TUBE GT SCH ×3 (09:01→21:26)
[2020-10-01] MEDS: VANCOMYCIN HCL 750 MG in DEXTROSE 5%-WATER 250 ML IV SCH ×2 (09:19→20:15)
[2020-10-01] MEDS: ASCORBIC ACID 500 MG TABLET PO SCH (09:20)
[2020-10-01] MEDS: ZINC SULFATE 220 MG CAPSULE PO SCH (09:20)
[2020-10-01] MEDS: CHOLECALCIFEROL (VIT D3) 1,000 UNITS [25 MCG] TABLET PO SCH (09:20)
[2020-10-01] MEDS: DOCUSATE SODIUM 100 MG CAPSULE PO SCH ×2 (09:20→21:25)
[2020-10-01] MEDS: APIXABAN 5 MG TABLET PO SCH ×2 (09:20→21:25)
[2020-10-01] MEDS: FAMOTIDINE 20 MG TABLET PO SCH (09:20)
[2020-10-01] MEDS: DEXAMETHASONE SOD PHOS 4 MG/ML VIAL IVP SCH (09:21)
[2020-10-01] MEDS: INSULIN GLARGINE,HUM.REC.ANLOG 100 UNITS/ML SQ SCH ×2 (09:26→21:24)
[2020-10-01 12:00] VITALS: BP 120/47
[2020-10-01 12:10] LABS: GLUCOSE,POINT OF CARE 84 MG/DL (70-110)
[2020-10-01 16:00] VITALS: BP 95/42
[2020-10-01] MEDS: EPINEPHrine 2 MG in DEXTROSE 5%-WATER 248 ML IV PRN (16:34)
[2020-10-01] MEDS: INSULIN LISPRO 100 UNITS/ML SQ PRN (17:52)
[2020-10-01 18:26] LABS: GLUCOSE,POINT OF CARE 194 MG/DL (70-110)
[2020-10-01 20:48] LABS: GLUCOSE,POINT OF CARE 181 MG/DL (70-110)
[2020-10-01 21:14] VITALS: BP 127/55
[2020-10-02 00:09] VITALS: BP 153/62
[2020-10-02 00:14] LABS: GLUCOSE,POINT OF CARE 164 MG/DL (70-110)
[2020-10-02] MEDS: PROPOFOL 1000 MG/ISO-OSM 100 ML IV PRN ×5 (04:12→23:25)
[2020-10-02 04:24] VITALS: BP 123/51
[2020-10-02 05:48] LABS: CALCIUM, TOTAL 6.8 mg/dL (8.8-10.5); CREATININE 1.56 mg/dL (0.60-1.30); POTASSIUM 3.8 mmol/L (3.5-5.1)
[2020-10-02 08:00] VITALS: BP 121/46
[2020-10-02] MEDS: AMINO ACIDS/PROTEIN HYDROLYS 30 ML TUBE GT SCH ×3 (08:21→20:17)
[2020-10-02] MEDS: FAMOTIDINE 20 MG TABLET PO SCH (08:24)
[2020-10-02] MEDS: DOCUSATE SODIUM 100 MG CAPSULE PO SCH ×2 (08:24→20:17)
[2020-10-02] MEDS: APIXABAN 5 MG TABLET PO SCH ×2 (08:24→20:17)
[2020-10-02] MEDS: ASCORBIC ACID 500 MG TABLET PO SCH (08:24)
[2020-10-02] MEDS: ZINC SULFATE 220 MG CAPSULE PO SCH (08:24)
[2020-10-02] MEDS: CHOLECALCIFEROL (VIT D3) 1,000 UNITS [25 MCG] TABLET PO SCH (08:25)
[2020-10-02] MEDS: DEXAMETHASONE SOD PHOS 4 MG/ML VIAL IVP SCH (08:25)
[2020-10-02] MEDS: VANCOMYCIN HCL 750 MG in DEXTROSE 5%-WATER 250 ML IV SCH ×2 (08:26→20:17)
[2020-10-02] MEDS: INSULIN GLARGINE,HUM.REC.ANLOG 100 UNITS/ML SQ SCH ×2 (08:37→20:24)
[2020-10-02] MEDS: FentaNYL CIT 1000MCG/D5%-WATER 100 ML IV PRN ×3 (09:15→20:17)
[2020-10-02 12:00] VITALS: BP 139/51
[2020-10-02 16:00] VITALS: BP 126/47
[2020-10-02] MEDS: INSULIN LISPRO 100 UNITS/ML SQ PRN (18:13)
[2020-10-02 20:29] LABS: GLUCOSE,POINT OF CARE 201 MG/DL (70-110)
[2020-10-02 20:29] LABS: GLUCOSE,POINT OF CARE 130 MG/DL (70-110)
[2020-10-02 21:07] VITALS: BP 143/50
[2020-10-02 22:20] LABS: GLUCOSE,POINT OF CARE 181 MG/DL (70-110)
[2020-10-03] MEDS: INSULIN LISPRO 100 UNITS/ML SQ PRN ×2 (01:04→18:09)
[2020-10-03 01:10] VITALS: BP 137/49
[2020-10-03 01:21] LABS: GLUCOSE,POINT OF CARE 172 MG/DL (70-110)
[2020-10-03] MEDS: FentaNYL CIT 1000MCG/D5%-WATER 100 ML IV PRN ×4 (02:34→18:44)
[2020-10-03] MEDS: PROPOFOL 1000 MG/ISO-OSM 100 ML IV PRN ×5 (04:10→22:22)
[2020-10-03 05:12] VITALS: BP 139/51
[2020-10-03 05:53] LABS: C-REACTIVE PROTEIN QUANT 20.66 mg/dL (0.00-0.30); CALCIUM, TOTAL 7.1 mg/dL (8.8-10.5); CREATININE 1.6 mg/dL (0.60-1.30); PHOSPHORUS 4.5 mg/dL (2.5-4.9); POTASSIUM 4.1 mmol/L (3.5-5.1); VANCOMYCIN,RANDOM 32.7 mcg/mL (25.0-50.0)
[2020-10-03 07:08] LABS: GLUCOSE,POINT OF CARE 122 MG/DL (70-110)
[2020-10-03 08:00] VITALS: BP 151/46
[2020-10-03] MEDS: AMINO ACIDS/PROTEIN HYDROLYS 30 ML TUBE GT SCH ×3 (09:06→21:19)
[2020-10-03] MEDS: CHOLECALCIFEROL (VIT D3) 1,000 UNITS [25 MCG] TABLET PO SCH (09:11)
[2020-10-03] MEDS: APIXABAN 5 MG TABLET PO SCH ×2 (09:11→21:19)
[2020-10-03] MEDS: ASCORBIC ACID 500 MG TABLET PO SCH (09:11)
[2020-10-03] MEDS: DEXAMETHASONE SOD PHOS 4 MG/ML VIAL IVP SCH (09:11)
[2020-10-03] MEDS: ZINC SULFATE 220 MG CAPSULE PO SCH (09:11)
[2020-10-03] MEDS: DOCUSATE SODIUM 100 MG CAPSULE PO SCH ×2 (09:11→21:19)
[2020-10-03] MEDS: FAMOTIDINE 20 MG TABLET PO SCH (09:11)
[2020-10-03] MEDS ORDERED: ROCURONIUM BROMIDE 10 MG/ML 5 ML VIAL IVP ONE (09:15)
[2020-10-03] MEDS ORDERED: ETOMIDATE 2 MG/ML 10 ML VIAL IVP ONE (09:15)
[2020-10-03] MEDS: INSULIN GLARGINE,HUM.REC.ANLOG 100 UNITS/ML SQ SCH ×2 (09:26→21:19)
[2020-10-03 12:00] VITALS: BP 132/49
[2020-10-03 16:00] VITALS: BP 113/46
[2020-10-03 17:33] LABS: GLUCOSE,POINT OF CARE 112 MG/DL (70-110)
[2020-10-03 20:00] VITALS: BP 123/45
[2020-10-03] MEDS ORDERED: VANCOMYCIN HCL 500 MG in DEXTROSE 5%-WATER 100 ML IV SCH (20:00)
[2020-10-03 22:36] LABS: GLUCOSE,POINT OF CARE 146 MG/DL (70-110)
[2020-10-04] VITALS: BP 131/48
[2020-10-04] MEDS: INSULIN LISPRO 100 UNITS/ML SQ PRN ×3 (00:08→23:30)
[2020-10-04 00:18] LABS: GLUCOSE,POINT OF CARE 162 MG/DL (70-110)
[2020-10-04] MEDS: FentaNYL CIT 1000MCG/D5%-WATER 100 ML IV PRN ×4 (00:32→20:23)
[2020-10-04 04:15] VITALS: BP 142/52
[2020-10-04] MEDS: PROPOFOL 1000 MG/ISO-OSM 100 ML IV PRN ×4 (04:25→17:15)
[2020-10-04 06:10] LABS: BASOPHILS % (AUTO) 0.2 % (0.0-2.0); EOSINOPHILS % (AUTO) 0.5 % (1.0-6.0); HEMOGLOBIN 9.7 g/dL (13.5-17.5); LYMPHOCYTES # (AUTO) 0.3 K/uL (1.0-4.8); MEAN CORPUSCULAR HEMOGLOBIN 31.1 pg (26.0-34.0); MEAN CORPUSCULAR HGB CONC 33.6 G/dL (31.0-37.0); MEAN CORPUSCULAR VOLUME 93 fL (80-100); MONOCYTES # (AUTO) 0.3 K/uL (0.1-1.0); MONOCYTES % (AUTO) 3.2 % (2.0-9.0); PLATELET COUNT (AUTO) 170 K/uL (150-450); RED BLOOD CELL COUNT(AUTO) 3.13 MIL/uL (4.50-5.90); RED CELL DISTRIBUTION WIDTH 14.9 % (11.5-14.5)
[2020-10-04 06:29] LABS: GLUCOSE,POINT OF CARE 127 MG/DL (70-110)
[2020-10-04 06:41] LABS: ALBUMIN 1.2 g/dL (3.4-5.0); BILIRUBIN,TOTAL 0.4 mg/dL (0.1-1.0); CALCIUM, TOTAL 7.8 mg/dL (8.8-10.5); CREATININE 1.82 mg/dL (0.60-1.30); POTASSIUM 4.5 mmol/L (3.5-5.1); TOTAL PROTEIN, SERUM 5.3 g/dL (6.4-8.2)
[2020-10-04 07:35] LABS: NEUTROPHILS % (AUTO) 93.1 % (40.0-70.0)
[2020-10-04 08:00] VITALS: BP 145/49
[2020-10-04] MEDS ORDERED: VANCOMYCIN HCL 1 GM/D5% WATER 200 ML IV SCH ×2 (08:00)
[2020-10-04] MEDS: AMINO ACIDS/PROTEIN HYDROLYS 30 ML TUBE GT SCH ×3 (08:47→20:22)
[2020-10-04] MEDS: DOCUSATE SODIUM 100 MG CAPSULE PO SCH ×2 (08:50→20:22)
[2020-10-04] MEDS: APIXABAN 5 MG TABLET PO SCH ×2 (08:50→20:22)
[2020-10-04] MEDS: DEXAMETHASONE SOD PHOS 4 MG/ML VIAL IVP SCH (08:50)
[2020-10-04] MEDS: ZINC SULFATE 220 MG CAPSULE PO SCH (08:51)
[2020-10-04] MEDS: CHOLECALCIFEROL (VIT D3) 1,000 UNITS [25 MCG] TABLET PO SCH (08:51)
[2020-10-04] MEDS: ASCORBIC ACID 500 MG TABLET PO SCH (08:51)
[2020-10-04] MEDS: FAMOTIDINE 20 MG TABLET PO SCH (08:51)
[2020-10-04] MEDS: INSULIN GLARGINE,HUM.REC.ANLOG 100 UNITS/ML SQ SCH ×2 (08:56→20:24)
[2020-10-04] MEDS: LORazepam 2 MG/ML VIAL IVP PRN (09:04)
[2020-10-04] MEDS ORDERED: FUROSEMIDE 20 MG/2 ML VIAL IVP ONE (10:00)
[2020-10-04] MEDS: MIDAZOLAM HCL 100 MG in DEXTROSE 5%-WATER 180 ML IV PRN ×2 (10:14→21:36)
[2020-10-04 11:42] LABS: GLUCOSE,POINT OF CARE 114 MG/DL (70-110)
[2020-10-04 12:00] VITALS: BP 126/44
[2020-10-04] MEDS: CISATRACURIUM BESYLATE 100 MG in DEXTROSE 5%-WATER 240 ML IV PRN ×2 (12:27→20:23)
[2020-10-04 16:00] VITALS: BP 101/42
[2020-10-04 19:20] LABS: GLUCOSE,POINT OF CARE 157 MG/DL (70-110)
[2020-10-04 19:59] LABS: GLUCOSE,POINT OF CARE 158 MG/DL (70-110)
[2020-10-04 20:00] VITALS: BP 119/45
[2020-10-04] MEDS: BISACODYL 10 MG RECTAL RECTAL SUPPOSITORY PR PRN (20:22)
[2020-10-04] MEDS ORDERED: SODIUM CHLORIDE 0.9% 500 ML IV ONE (21:54)
[2020-10-04 23:40] LABS: GLUCOSE,POINT OF CARE 160 MG/DL (70-110)
[2020-10-05] VITALS: BP 124/47
[2020-10-05] MEDS: PROPOFOL 1000 MG/ISO-OSM 100 ML IV PRN ×4 (01:29→19:42)
[2020-10-05 04:00] VITALS: BP 128/48
[2020-10-05 05:49] LABS: BASOPHILS % (AUTO) 0.1 % (0.0-2.0); EOSINOPHILS % (AUTO) 1.4 % (1.0-6.0); HEMATOCRIT 33.2 % (41-53); HEMOGLOBIN 10.8 g/dL (13.5-17.5); LYMPHOCYTES # (AUTO) 0.4 K/uL (1.0-4.8); LYMPHOCYTES % (AUTO) 3.8 % (22.0-44.0); MEAN CORPUSCULAR HGB CONC 32.5 G/dL (31.0-37.0); MEAN CORPUSCULAR VOLUME 93 fL (80-100); MONOCYTES # (AUTO) 0.4 K/uL (0.1-1.0); MONOCYTES % (AUTO) 3.3 % (2.0-9.0); NEUTROPHILS # (AUTO) 10.2 K/uL (1.8-7.7); PLATELET COUNT (AUTO) 206 K/uL (150-450); RED BLOOD CELL COUNT(AUTO) 3.59 MIL/uL (4.50-5.90); RED CELL DISTRIBUTION WIDTH 14.9 % (11.5-14.5)
[2020-10-05 05:51] LABS: NEUTROPHILS % (AUTO) 91.4 % (40.0-70.0)
[2020-10-05] MEDS: FentaNYL CIT 1000MCG/D5%-WATER 100 ML IV PRN ×2 (05:56→13:13)
[2020-10-05 06:08] LABS: ALBUMIN 1.1 g/dL (3.4-5.0); BILIRUBIN,TOTAL 0.5 mg/dL (0.1-1.0); CALCIUM, TOTAL 7.9 mg/dL (8.8-10.5); CREATININE 1.74 mg/dL (0.60-1.30); POTASSIUM 4.2 mmol/L (3.5-5.1); TOTAL PROTEIN, SERUM 5.4 g/dL (6.4-8.2)
[2020-10-05 07:21] LABS: GLUCOSE,POINT OF CARE 119 MG/DL (70-110)
[2020-10-05 08:00] VITALS: BP 133/49
[2020-10-05] MEDS: CISATRACURIUM BESYLATE 100 MG in DEXTROSE 5%-WATER 240 ML IV PRN ×2 (09:17→20:53)
[2020-10-05] MEDS: AMINO ACIDS/PROTEIN HYDROLYS 30 ML TUBE GT SCH ×3 (09:38→20:52)
[2020-10-05] MEDS: CHOLECALCIFEROL (VIT D3) 1,000 UNITS [25 MCG] TABLET PO SCH (09:39)
[2020-10-05] MEDS: ASCORBIC ACID 500 MG TABLET PO SCH (09:39)
[2020-10-05] MEDS: ZINC SULFATE 220 MG CAPSULE PO SCH (09:39)
[2020-10-05] MEDS: DEXAMETHASONE SOD PHOS 4 MG/ML VIAL IVP SCH (09:40)
[2020-10-05] MEDS: APIXABAN 5 MG TABLET PO SCH ×2 (09:40→20:52)
[2020-10-05] MEDS: DOCUSATE SODIUM 100 MG CAPSULE PO SCH ×2 (09:40→20:52)
[2020-10-05] MEDS: INSULIN GLARGINE,HUM.REC.ANLOG 100 UNITS/ML SQ SCH ×2 (09:41→20:52)
[2020-10-05] MEDS: FAMOTIDINE 20 MG TABLET PO SCH (10:30)
[2020-10-05] MEDS ORDERED: FUROSEMIDE 20 MG/2 ML VIAL IVP ONE (10:30)
[2020-10-05 12:00] VITALS: BP 97/64
[2020-10-05 12:40] LABS: ABG A-A DIFF O2 580.8 mmHg (10-20.0); ABG BASE EXCESS -1.2 mmol/L (-2.0-3.0); ABG CARBOXYHEMOGLOBIN 1.6 % (0.0-1.5); ABG HCO3 22.6 mmol/L (22.0-26.0); ABG METHEMOGLOBIN 0.3 % (0.0-1.5); ABG OXYGEN CONTENT 15.4 mL/dL (15.0-23.0); ABG OXYHEMOGLOBIN 82.9 % (94.0-100.0); ABG PCO2 52 mmHg (35-45); ABG PH 7.305 (7.35-7.450); ABG TOTAL HEMOGLOBIN 13.2 G/dL (12.0-18.0); SOURCE, BLOOD GAS ARTERIAL; TEMPERATURE, FAHRENHEIT, BG 96.6 FAHREN (96.0-98.6)
[2020-10-05 12:41] LABS: ABG OXYGEN SATURATION 84.5 % (95.0-98.0); O2 DEVICE,BLOOD GAS VENTILATOR (ROOM AIR); PEEP,BG 10 cm H2O; SITE, BLOOD GAS ARTERIAL LINE; VT, ABG 475 ml
[2020-10-05 16:00] VITALS: BP 115/45
[2020-10-05 16:51] LABS: GLUCOSE,POINT OF CARE 89 MG/DL (70-110)
[2020-10-05] MEDS: MIDAZOLAM HCL 100 MG in DEXTROSE 5%-WATER 180 ML IV PRN (19:41)
[2020-10-05 20:00] VITALS: BP 119/46
[2020-10-06] VITALS: BP 128/46
[2020-10-06] MEDS: FentaNYL CIT 1000MCG/D5%-WATER 100 ML IV PRN ×4 (00:12→22:02)
[2020-10-06 00:15] LABS: GLUCOSE,POINT OF CARE 115 MG/DL (70-110)
[2020-10-06 00:15] LABS: GLUCOSE,POINT OF CARE 127 MG/DL (70-110)
[2020-10-06] MEDS: PROPOFOL 1000 MG/ISO-OSM 100 ML IV PRN ×5 (01:38→22:01)
[2020-10-06 04:00] VITALS: BP 134/47
[2020-10-06] MEDS ORDERED: SODIUM CHLORIDE 0.9% 250 ML IV ONE (05:06)
[2020-10-06 05:11] LABS: GLUCOSE,POINT OF CARE 132 MG/DL (70-110)
[2020-10-06 05:46] LABS: BASOPHILS % (AUTO) 0.2 % (0.0-2.0); HEMATOCRIT 32.9 % (41-53); HEMOGLOBIN 10.9 g/dL (13.5-17.5); LYMPHOCYTES # (AUTO) 0.5 K/uL (1.0-4.8); LYMPHOCYTES % (AUTO) 5.9 % (22.0-44.0); MEAN CORPUSCULAR HEMOGLOBIN 30.5 pg (26.0-34.0); MEAN CORPUSCULAR VOLUME 92 fL (80-100); MONOCYTES # (AUTO) 0.5 K/uL (0.1-1.0); MONOCYTES % (AUTO) 5.3 % (2.0-9.0); NEUTROPHILS # (AUTO) 7.7 K/uL (1.8-7.7); PLATELET COUNT (AUTO) 196 K/uL (150-450); RED BLOOD CELL COUNT(AUTO) 3.56 MIL/uL (4.50-5.90); RED CELL DISTRIBUTION WIDTH 14.9 % (11.5-14.5)
[2020-10-06 05:48] LABS: GLUCOSE,POINT OF CARE 113 MG/DL (70-110)
[2020-10-06 05:57] LABS: NEUTROPHILS % (AUTO) 86.6 % (40.0-70.0)
[2020-10-06 05:58] LABS: ALBUMIN 1.1 g/dL (3.4-5.0); BILIRUBIN,TOTAL 0.4 mg/dL (0.1-1.0); C-REACTIVE PROTEIN QUANT 15.56 mg/dL (0.00-0.30); CALCIUM, TOTAL 8.1 mg/dL (8.8-10.5); CREATININE 1.62 mg/dL (0.60-1.30); POTASSIUM 4.4 mmol/L (3.5-5.1); TOTAL PROTEIN, SERUM 5.5 g/dL (6.4-8.2)
[2020-10-06 08:00] VITALS: BP 140/49
[2020-10-06] MEDS: CISATRACURIUM BESYLATE 100 MG in DEXTROSE 5%-WATER 240 ML IV PRN ×2 (08:19→19:14)
[2020-10-06] MEDS: DEXAMETHASONE SOD PHOS 4 MG/ML VIAL IVP SCH (08:19)
[2020-10-06] MEDS: ASCORBIC ACID 500 MG TABLET PO SCH (08:19)
[2020-10-06] MEDS: CHOLECALCIFEROL (VIT D3) 1,000 UNITS [25 MCG] TABLET PO SCH (08:19)
[2020-10-06] MEDS: ZINC SULFATE 220 MG CAPSULE PO SCH (08:19)
[2020-10-06] MEDS: DOCUSATE SODIUM 100 MG CAPSULE PO SCH ×2 (08:20→21:56)
[2020-10-06] MEDS: FAMOTIDINE 20 MG TABLET PO SCH (08:20)
[2020-10-06] MEDS: APIXABAN 5 MG TABLET PO SCH ×2 (08:20→21:56)
[2020-10-06] MEDS: AMINO ACIDS/PROTEIN HYDROLYS 30 ML TUBE GT SCH ×3 (08:20→22:00)
[2020-10-06] MEDS: INSULIN GLARGINE,HUM.REC.ANLOG 100 UNITS/ML SQ SCH ×2 (08:24→21:58)
[2020-10-06] MEDS: METOCLOPRAMIDE HCL 5 MG/ML 2 ML VIAL IVP SCH ×2 (09:40→16:05)
[2020-10-06 10:53] LABS: ABG A-A DIFF O2 598.1 mmHg (10-20.0); ABG BASE EXCESS -1.9 mmol/L (-2.0-3.0); ABG CARBOXYHEMOGLOBIN 1.5 % (0.0-1.5); ABG HCO3 21.5 mmol/L (22.0-26.0); ABG METHEMOGLOBIN 0.3 % (0.0-1.5); ABG OXYGEN CONTENT 14.9 mL/dL (15.0-23.0); ABG TOTAL HEMOGLOBIN 13.1 G/dL (12.0-18.0); SOURCE, BLOOD GAS ARTERIAL; TEMPERATURE, FAHRENHEIT, BG 97.5 FAHREN (96.0-98.6)
[2020-10-06 10:54] LABS: ABG OXYGEN SATURATION 82.5 % (95.0-98.0); ABG PCO2 68 mmHg (35-45); ABG PH 7.204 (7.35-7.450)
[2020-10-06 10:56] LABS: O2 DEVICE,BLOOD GAS VENTILATOR (ROOM AIR); SITE, BLOOD GAS A-LINE
[2020-10-06 10:58] LABS: PEEP,BG 10 cm H2O; VT, ABG 475 ml
[2020-10-06 12:00] VITALS: BP 128/48
[2020-10-06] MEDS: INSULIN LISPRO 100 UNITS/ML SQ PRN ×2 (12:00→17:49)
[2020-10-06 13:14] LABS: ABG BASE EXCESS -1.8 mmol/L (-2.0-3.0); ABG CARBOXYHEMOGLOBIN 1.5 % (0.0-1.5); ABG HCO3 22.1 mmol/L (22.0-26.0); ABG METHEMOGLOBIN 0.3 % (0.0-1.5); ABG OXYGEN CONTENT 16.7 mL/dL (15.0-23.0); ABG OXYGEN SATURATION 96.9 % (95.0-98.0); ABG OXYHEMOGLOBIN 95.2 % (94.0-100.0); ABG PCO2 62 mmHg (35-45); ABG PH 7.231 (7.35-7.450); ABG TOTAL HEMOGLOBIN 12.4 G/dL (12.0-18.0); PO2, ARTERIAL BG 93.1 mmHg (75.0-83.0); SOURCE, BLOOD GAS ARTERIAL; TEMPERATURE, FAHRENHEIT, BG 97.5 FAHREN (96.0-98.6)
[2020-10-06 13:15] LABS: O2 DEVICE,BLOOD GAS VENTILATOR (ROOM AIR); SITE, BLOOD GAS ART-LINE; VT, ABG 500 ml
[2020-10-06 13:17] LABS: PEEP,BG 10 cm H2O
[2020-10-06 16:00] VITALS: BP 114/48
[2020-10-06 17:17] LABS: GLUCOSE,POINT OF CARE 159 MG/DL (70-110)
[2020-10-06] MEDS: MIDAZOLAM HCL 100 MG in DEXTROSE 5%-WATER 180 ML IV PRN (17:21)
[2020-10-06 19:21] LABS: GLUCOSE,POINT OF CARE 201 MG/DL (70-110)
[2020-10-06 20:00] VITALS: BP 122/49
[2020-10-07] VITALS: BP 149/55
[2020-10-07] MEDS: METOCLOPRAMIDE HCL 5 MG/ML 2 ML VIAL IVP SCH ×3 (01:48→17:22)
[2020-10-07 01:55] LABS: GLUCOSE,POINT OF CARE 139 MG/DL (70-110)
[2020-10-07 01:55] LABS: GLUCOSE,POINT OF CARE 159 MG/DL (70-110)
[2020-10-07] MEDS: PROPOFOL 1000 MG/ISO-OSM 100 ML IV PRN ×4 (02:56→17:23)
[2020-10-07 04:00] VITALS: BP 151/55
[2020-10-07 05:32] LABS: BASOPHILS % (AUTO) 0.4 % (0.0-2.0); EOSINOPHILS % (AUTO) 1.8 % (1.0-6.0); HEMATOCRIT 34.2 % (41-53); HEMOGLOBIN 11.1 g/dL (13.5-17.5); LYMPHOCYTES # (AUTO) 0.5 K/uL (1.0-4.8); LYMPHOCYTES % (AUTO) 5.5 % (22.0-44.0); MEAN CORPUSCULAR HEMOGLOBIN 30.1 pg (26.0-34.0); MEAN CORPUSCULAR HGB CONC 32.5 G/dL (31.0-37.0); MEAN CORPUSCULAR VOLUME 93 fL (80-100); MONOCYTES # (AUTO) 0.5 K/uL (0.1-1.0); MONOCYTES % (AUTO) 6.3 % (2.0-9.0); NEUTROPHILS # (AUTO) 7.1 K/uL (1.8-7.7); PLATELET COUNT (AUTO) 208 K/uL (150-450); RED BLOOD CELL COUNT(AUTO) 3.69 MIL/uL (4.50-5.90); RED CELL DISTRIBUTION WIDTH 14.6 % (11.5-14.5)
[2020-10-07 05:49] LABS: ALBUMIN 1.2 g/dL (3.4-5.0); BILIRUBIN,TOTAL 0.4 mg/dL (0.1-1.0); CALCIUM, TOTAL 8.4 mg/dL (8.8-10.5); CREATININE 1.58 mg/dL (0.60-1.30); POTASSIUM 4.4 mmol/L (3.5-5.1); TOTAL PROTEIN, SERUM 5.8 g/dL (6.4-8.2)
[2020-10-07 07:07] LABS: GLUCOSE,POINT OF CARE 135 MG/DL (70-110)
[2020-10-07 08:00] VITALS: BP 149/55
[2020-10-07] MEDS: CISATRACURIUM BESYLATE 100 MG in DEXTROSE 5%-WATER 240 ML IV PRN ×2 (08:08→18:02)
[2020-10-07] MEDS: DEXAMETHASONE SOD PHOS 4 MG/ML VIAL IVP SCH (08:09)
[2020-10-07] MEDS: FentaNYL CIT 1000MCG/D5%-WATER 100 ML IV PRN ×3 (08:09→17:22)
[2020-10-07] MEDS: DOCUSATE SODIUM 100 MG CAPSULE PO SCH ×2 (08:11→21:35)
[2020-10-07] MEDS: FAMOTIDINE 20 MG TABLET PO SCH (08:11)
[2020-10-07] MEDS: ZINC SULFATE 220 MG CAPSULE PO SCH (08:11)
[2020-10-07] MEDS: APIXABAN 5 MG TABLET PO SCH ×2 (08:11→21:35)
[2020-10-07] MEDS: CHOLECALCIFEROL (VIT D3) 1,000 UNITS [25 MCG] TABLET PO SCH (08:11)
[2020-10-07] MEDS: ASCORBIC ACID 500 MG TABLET PO SCH (08:11)
[2020-10-07] MEDS: FUROSEMIDE 20 MG/2 ML VIAL IVP SCH (08:11)
[2020-10-07] MEDS: INSULIN GLARGINE,HUM.REC.ANLOG 100 UNITS/ML SQ SCH ×2 (08:14→21:37)
[2020-10-07 11:56] LABS: ABG A-A DIFF O2 618.2 mmHg (10-20.0); ABG BASE EXCESS -2.3 mmol/L (-2.0-3.0); ABG CARBOXYHEMOGLOBIN 1.6 % (0.0-1.5); ABG METHEMOGLOBIN 0.1 % (0.0-1.5); ABG OXYGEN CONTENT 16.2 mL/dL (15.0-23.0); ABG OXYGEN SATURATION 85.7 % (95.0-98.0); ABG OXYHEMOGLOBIN 84.2 % (94.0-100.0); ABG PCO2 48 mmHg (35-45); ABG PH 7.315 (7.35-7.450); ABG TOTAL HEMOGLOBIN 13.7 G/dL (12.0-18.0); PO2, ARTERIAL BG 47.8 mmHg (75.0-83.0); SOURCE, BLOOD GAS ARTERIAL; TEMPERATURE, FAHRENHEIT, BG 97.8 FAHREN (96.0-98.6)
[2020-10-07 11:58] LABS: O2 DEVICE,BLOOD GAS VENTILATOR (ROOM AIR); SITE, BLOOD GAS ARTERIAL LINE; VENT MODE, BG Press. Control Vent (ROOM AIR)
[2020-10-07 11:59] LABS: PEEP,BG 10 cm H2O; SPONTANEOUS VT, BG 472 ml
[2020-10-07 12:00] VITALS: BP 132/54
[2020-10-07] MEDS: INSULIN LISPRO 100 UNITS/ML SQ PRN ×2 (12:42→18:01)
[2020-10-07 13:26] LABS: GLUCOSE,POINT OF CARE 175 MG/DL (70-110)
[2020-10-07] MEDS: AMINO ACIDS/PROTEIN HYDROLYS 30 ML TUBE GT SCH (14:00)
[2020-10-07] MEDS: MIDAZOLAM HCL 100 MG in DEXTROSE 5%-WATER 180 ML IV PRN (15:19)
[2020-10-07 16:00] VITALS: BP 113/47
[2020-10-07 16:47] LABS: ABG A-A DIFF O2 600.4 mmHg (10-20.0); ABG BASE EXCESS -1.1 mmol/L (-2.0-3.0); ABG CARBOXYHEMOGLOBIN 1.4 % (0.0-1.5); ABG HCO3 23.3 mmol/L (22.0-26.0); ABG METHEMOGLOBIN 0.3 % (0.0-1.5); ABG OXYGEN CONTENT 14.3 mL/dL (15.0-23.0); ABG OXYGEN SATURATION 93.2 % (95.0-98.0); ABG OXYHEMOGLOBIN 91.6 % (94.0-100.0); ABG PCO2 48 mmHg (35-45); ABG PH 7.332 (7.35-7.450); ABG TOTAL HEMOGLOBIN 11.1 G/dL (12.0-18.0); O2 DEVICE,BLOOD GAS VENTILATOR (ROOM AIR); SITE, BLOOD GAS ARTERIAL LINE; SOURCE, BLOOD GAS ARTERIAL; TEMPERATURE, FAHRENHEIT, BG 98.5 FAHREN (96.0-98.6); VENT MODE, BG Press. Control Vent (ROOM AIR)
[2020-10-07 16:48] LABS: PEEP,BG 12 cm H2O; SPONTANEOUS VT, BG 449 ml
[2020-10-07 18:12] LABS: GLUCOSE,POINT OF CARE 170 MG/DL (70-110)
[2020-10-07 20:00] VITALS: BP 135/49
[2020-10-08] VITALS: BP 176/59
[2020-10-08 00:13] LABS: GLUCOSE,POINT OF CARE 152 MG/DL (70-110)
[2020-10-08] MEDS: PROPOFOL 1000 MG/ISO-OSM 100 ML IV PRN ×6 (00:20→22:51)
[2020-10-08] MEDS: METOCLOPRAMIDE HCL 5 MG/ML 2 ML VIAL IVP SCH ×3 (00:20→18:06)
[2020-10-08] MEDS: CISATRACURIUM BESYLATE 100 MG in DEXTROSE 5%-WATER 240 ML IV PRN ×3 (02:41→22:52)
[2020-10-08 04:00] VITALS: BP 172/58
[2020-10-08 06:07] LABS: BASOPHILS % (AUTO) 0.5 % (0.0-2.0); EOSINOPHILS % (AUTO) 2.9 % (1.0-6.0); HEMATOCRIT 34.5 % (41-53); HEMOGLOBIN 11.2 g/dL (13.5-17.5); LYMPHOCYTES # (AUTO) 0.7 K/uL (1.0-4.8); LYMPHOCYTES % (AUTO) 6.7 % (22.0-44.0); MEAN CORPUSCULAR HEMOGLOBIN 29.9 pg (26.0-34.0); MEAN CORPUSCULAR HGB CONC 32.5 G/dL (31.0-37.0); MEAN CORPUSCULAR VOLUME 92 fL (80-100); MONOCYTES # (AUTO) 0.5 K/uL (0.1-1.0); MONOCYTES % (AUTO) 4.8 % (2.0-9.0); NEUTROPHILS # (AUTO) 9.5 K/uL (1.8-7.7); NEUTROPHILS % (AUTO) 85.1 % (40.0-70.0); PLATELET COUNT (AUTO) 229 K/uL (150-450); RED BLOOD CELL COUNT(AUTO) 3.74 MIL/uL (4.50-5.90); RED CELL DISTRIBUTION WIDTH 14.7 % (11.5-14.5)
[2020-10-08 06:28] LABS: ALBUMIN 1.4 g/dL (3.4-5.0); BILIRUBIN,TOTAL 0.5 mg/dL (0.1-1.0); CALCIUM, TOTAL 8.6 mg/dL (8.8-10.5); CREATININE 1.49 mg/dL (0.60-1.30); TOTAL PROTEIN, SERUM 6.1 g/dL (6.4-8.2)
[2020-10-08 06:29] LABS: GLUCOSE,POINT OF CARE 111 MG/DL (70-110)
[2020-10-08 06:29] LABS: GLUCOSE,POINT OF CARE 132 MG/DL (70-110)
[2020-10-08] MEDS: FentaNYL CIT 1000MCG/D5%-WATER 100 ML IV PRN ×3 (06:51→21:10)
[2020-10-08 08:00] VITALS: BP 150/47
[2020-10-08] MEDS: APIXABAN 5 MG TABLET PO SCH ×2 (09:59→21:08)
[2020-10-08] MEDS: CHOLECALCIFEROL (VIT D3) 1,000 UNITS [25 MCG] TABLET PO SCH (09:59)
[2020-10-08] MEDS: ZINC SULFATE 220 MG CAPSULE PO SCH (09:59)
[2020-10-08] MEDS: ASCORBIC ACID 500 MG TABLET PO SCH (09:59)
[2020-10-08] MEDS: FAMOTIDINE 20 MG TABLET PO SCH (09:59)
[2020-10-08] MEDS: DOCUSATE SODIUM 100 MG CAPSULE PO SCH ×2 (10:00→21:08)
[2020-10-08] MEDS: DEXAMETHASONE SOD PHOS 4 MG/ML VIAL IVP SCH (10:00)
[2020-10-08] MEDS: FUROSEMIDE 20 MG/2 ML VIAL IVP SCH (10:01)
[2020-10-08] MEDS: INSULIN GLARGINE,HUM.REC.ANLOG 100 UNITS/ML SQ SCH ×2 (10:04→21:09)
[2020-10-08 12:00] VITALS: BP 138/46
[2020-10-08 12:07] LABS: GLUCOSE,POINT OF CARE 125 MG/DL (70-110)
[2020-10-08] MEDS: AMINO ACIDS/PROTEIN HYDROLYS 30 ML TUBE GT SCH (13:46)
[2020-10-08] MEDS: MIDAZOLAM HCL 100 MG in DEXTROSE 5%-WATER 180 ML IV PRN (13:47)
[2020-10-08] MEDS: NOREPINEPHRINE 4 MG/D5%-WATER 250 ML IV PRN (14:54)
[2020-10-08] MEDS: INSULIN LISPRO 100 UNITS/ML SQ PRN (17:41)
[2020-10-08 17:57] VITALS: BP 116/47
[2020-10-08 18:05] LABS: GLUCOSE,POINT OF CARE 152 MG/DL (70-110)
[2020-10-08 20:00] VITALS: BP 156/45
[2020-10-08] MEDS ORDERED: SODIUM CHLORIDE 0.9% 500 ML IV ONE (21:04)
[2020-10-08 23:07] LABS: GLUCOSE,POINT OF CARE 130 MG/DL (70-110)
[2020-10-09] VITALS: BP 152/50
[2020-10-09] MEDS: PROPOFOL 1000 MG/ISO-OSM 100 ML IV PRN ×5 (03:55→22:48)
[2020-10-09 04:00] VITALS: BP 132/45
[2020-10-09] MEDS: CISATRACURIUM BESYLATE 100 MG in DEXTROSE 5%-WATER 240 ML IV PRN ×3 (05:40→22:47)
[2020-10-09 06:32] LABS: BASOPHILS % (AUTO) 0.4 % (0.0-2.0); EOSINOPHILS % (AUTO) 1.7 % (1.0-6.0); HEMATOCRIT 34.3 % (41-53); HEMOGLOBIN 11.3 g/dL (13.5-17.5); LYMPHOCYTES # (AUTO) 0.6 K/uL (1.0-4.8); MEAN CORPUSCULAR HEMOGLOBIN 30.3 pg (26.0-34.0); MEAN CORPUSCULAR HGB CONC 32.9 G/dL (31.0-37.0); MEAN CORPUSCULAR VOLUME 92 fL (80-100); MONOCYTES # (AUTO) 0.4 K/uL (0.1-1.0); MONOCYTES % (AUTO) 2.7 % (2.0-9.0); NEUTROPHILS # (AUTO) 14.7 K/uL (1.8-7.7); PLATELET COUNT (AUTO) 249 K/uL (150-450); RED BLOOD CELL COUNT(AUTO) 3.72 MIL/uL (4.50-5.90); RED CELL DISTRIBUTION WIDTH 14.6 % (11.5-14.5)
[2020-10-09] MEDS: FentaNYL CIT 1000MCG/D5%-WATER 100 ML IV PRN ×2 (06:42→17:51)
[2020-10-09 06:48] LABS: NEUTROPHILS % (AUTO) 91.2 % (40.0-70.0)
[2020-10-09 06:49] LABS: GLUCOSE,POINT OF CARE 114 MG/DL (70-110)
[2020-10-09 06:49] LABS: GLUCOSE,POINT OF CARE 133 MG/DL (70-110)
[2020-10-09 07:02] LABS: ALBUMIN 1.3 g/dL (3.4-5.0); BILIRUBIN,TOTAL 0.9 mg/dL (0.1-1.0); CALCIUM, TOTAL 8.6 mg/dL (8.8-10.5); CREATININE 1.37 mg/dL (0.60-1.30); POTASSIUM 4.2 mmol/L (3.5-5.1); TOTAL PROTEIN, SERUM 6.3 g/dL (6.4-8.2)
[2020-10-09 08:00] VITALS: BP 128/49
[2020-10-09] MEDS: METOCLOPRAMIDE HCL 5 MG/ML 2 ML VIAL IVP SCH ×4 (10:10→23:58)
[2020-10-09] MEDS: FUROSEMIDE 20 MG/2 ML VIAL IVP SCH ×2 (10:10→21:01)
[2020-10-09] MEDS: ASCORBIC ACID 500 MG TABLET PO SCH (10:11)
[2020-10-09] MEDS: DEXAMETHASONE SOD PHOS 4 MG/ML VIAL IVP SCH (10:11)
[2020-10-09] MEDS: APIXABAN 5 MG TABLET PO SCH ×2 (10:11→21:01)
[2020-10-09] MEDS: DOCUSATE SODIUM 100 MG CAPSULE PO SCH ×2 (10:12→21:01)
[2020-10-09] MEDS: CHOLECALCIFEROL (VIT D3) 1,000 UNITS [25 MCG] TABLET PO SCH (10:12)
[2020-10-09] MEDS: ZINC SULFATE 220 MG CAPSULE PO SCH (10:12)
[2020-10-09] MEDS: FAMOTIDINE 20 MG TABLET PO SCH (10:15)
[2020-10-09] MEDS: INSULIN GLARGINE,HUM.REC.ANLOG 100 UNITS/ML SQ SCH ×2 (10:28→21:03)
[2020-10-09 12:00] VITALS: BP 106/55
[2020-10-09] MEDS: AMINO ACIDS/PROTEIN HYDROLYS 30 ML TUBE GT SCH (13:35)
[2020-10-09] MEDS: INSULIN LISPRO 100 UNITS/ML SQ PRN ×2 (13:55→17:53)
[2020-10-09] MEDS: MIDAZOLAM HCL 100 MG in DEXTROSE 5%-WATER 180 ML IV PRN (14:01)
[2020-10-09 14:32] LABS: GLUCOSE,POINT OF CARE 163 MG/DL (70-110)
[2020-10-09 16:00] VITALS: BP 113/47
[2020-10-09 20:00] VITALS: BP 126/64
[2020-10-09 20:54] LABS: GLUCOSE,POINT OF CARE 162 MG/DL (70-110)
[2020-10-09 20:54] LABS: GLUCOSE,POINT OF CARE 143 MG/DL (70-110)
[2020-10-10] VITALS: BP 127/44
[2020-10-10 01:57] LABS: GLUCOSE,POINT OF CARE 133 MG/DL (70-110)
[2020-10-10] MEDS: PROPOFOL 1000 MG/ISO-OSM 100 ML IV PRN ×5 (02:40→21:32)
[2020-10-10 04:00] VITALS: BP 125/55
[2020-10-10 05:19] LABS: APPEARANCE,URINE TURBID (CLEAR); BILIRUBIN,URINE NEGATIVE (NEGATIVE); GLUCOSE, URINE (UA) NEGATIVE (NEGATIVE); KETONES,URINE NEGATIVE (NEGATIVE); LEUKOCYTE ESTERASE ,URINE SMALL (NEGATIVE); NITRATE,URINE NEGATIVE (NEGATIVE); OCCULT BLOOD,URINE LARGE (NEGATIVE); PROTEIN,URINE POS 1+ (NEGATIVE)
[2020-10-10] MEDS ORDERED: SODIUM CHLORIDE 0.9% 500 ML IV ONE ×2 (05:37→23:59)
[2020-10-10 05:46] LABS: AMORPHOUS SEDIMENT,UR Moderate /LPF (None Seen); BACTERIA,URINE Few /HPF (None Seen); SQUAMOUS EPITHELIAL CELL,UR Few /LPF (None Seen)
[2020-10-10 06:13] LABS: BASOPHILS % (AUTO) 0.4 % (0.0-2.0); EOSINOPHILS % (AUTO) 1.1 % (1.0-6.0); HEMATOCRIT 30.1 % (41-53); HEMOGLOBIN 9.9 g/dL (13.5-17.5); LYMPHOCYTES # (AUTO) 0.4 K/uL (1.0-4.8); LYMPHOCYTES % (AUTO) 4.1 % (22.0-44.0); MEAN CORPUSCULAR HEMOGLOBIN 30.6 pg (26.0-34.0); MEAN CORPUSCULAR VOLUME 93 fL (80-100); MONOCYTES # (AUTO) 0.3 K/uL (0.1-1.0); MONOCYTES % (AUTO) 3.6 % (2.0-9.0); NEUTROPHILS # (AUTO) 8.6 K/uL (1.8-7.7); PLATELET COUNT (AUTO) 182 K/uL (150-450); RED BLOOD CELL COUNT(AUTO) 3.26 MIL/uL (4.50-5.90); RED CELL DISTRIBUTION WIDTH 14.7 % (11.5-14.5)
[2020-10-10 06:47] LABS: ALBUMIN 1.2 g/dL (3.4-5.0); BILIRUBIN,TOTAL 0.4 mg/dL (0.1-1.0); CALCIUM, TOTAL 8.6 mg/dL (8.8-10.5); CREATININE 1.61 mg/dL (0.60-1.30); POTASSIUM 4.6 mmol/L (3.5-5.1); TOTAL PROTEIN, SERUM 5.9 g/dL (6.4-8.2)
[2020-10-10 06:59] LABS: C-REACTIVE PROTEIN QUANT 25.94 mg/dL (0.00-0.30)
[2020-10-10 07:08] LABS: GLUCOSE,POINT OF CARE 107 MG/DL (70-110)
[2020-10-10 08:00] VITALS: BP 135/47
[2020-10-10 08:15] LABS: NEUTROPHILS % (AUTO) 90.8 % (40.0-70.0)
[2020-10-10] MEDS: METOCLOPRAMIDE HCL 5 MG/ML 2 ML VIAL IVP SCH ×3 (09:05→23:37)
[2020-10-10] MEDS: ZINC SULFATE 220 MG CAPSULE PO SCH (09:06)
[2020-10-10] MEDS: FUROSEMIDE 20 MG/2 ML VIAL IVP SCH (09:06)
[2020-10-10] MEDS: APIXABAN 5 MG TABLET PO SCH ×2 (09:06→20:53)
[2020-10-10] MEDS: DEXAMETHASONE SOD PHOS 4 MG/ML VIAL IVP SCH (09:06)
[2020-10-10] MEDS: CHOLECALCIFEROL (VIT D3) 1,000 UNITS [25 MCG] TABLET PO SCH (09:06)
[2020-10-10] MEDS: ASCORBIC ACID 500 MG TABLET PO SCH (09:07)
[2020-10-10] MEDS: DOCUSATE SODIUM 100 MG CAPSULE PO SCH ×2 (09:07→20:53)
[2020-10-10] MEDS: FAMOTIDINE 20 MG TABLET PO SCH (09:08)
[2020-10-10] MEDS: CISATRACURIUM BESYLATE 100 MG in DEXTROSE 5%-WATER 240 ML IV PRN (09:10)
[2020-10-10] MEDS: INSULIN GLARGINE,HUM.REC.ANLOG 100 UNITS/ML SQ SCH ×2 (09:19→20:55)
[2020-10-10 12:00] VITALS: BP 148/47
[2020-10-10] MEDS ORDERED: SODIUM CHLORIDE 0.9% 250 ML IV ONE ×2 (13:02→23:59)
[2020-10-10] MEDS: CefTRIAXone SODIUM 2 GM in DEXTROSE 5%-WATER 50 ML IV SCH (13:05)
[2020-10-10 13:19] LABS: GLUCOSE,POINT OF CARE 90 MG/DL (70-110)
[2020-10-10] MEDS: AMINO ACIDS/PROTEIN HYDROLYS 30 ML TUBE GT SCH (14:11)
[2020-10-10] MEDS: MIDAZOLAM HCL 100 MG in DEXTROSE 5%-WATER 180 ML IV PRN (15:29)
[2020-10-10 16:00] VITALS: BP 97/41
[2020-10-10] MEDS: INSULIN LISPRO 100 UNITS/ML SQ PRN (18:02)
[2020-10-10 18:32] LABS: GLUCOSE,POINT OF CARE 153 MG/DL (70-110)
[2020-10-10 20:00] VITALS: BP 113/44
[2020-10-10 21:28] LABS: GLUCOSE,POINT OF CARE 141 MG/DL (70-110)
[2020-10-11] VITALS: BP 112/43
[2020-10-11 02:09] LABS: GLUCOSE,POINT OF CARE 122 MG/DL (70-110)
[2020-10-11] MEDS: PROPOFOL 1000 MG/ISO-OSM 100 ML IV PRN ×6 (02:16→18:37)
[2020-10-11] MEDS: BISACODYL 10 MG RECTAL RECTAL SUPPOSITORY PR PRN (02:38)
[2020-10-11 04:00] VITALS: BP 145/49
[2020-10-11] MEDS: NOREPINEPHRINE 4 MG/D5%-WATER 250 ML IV PRN (04:21)
[2020-10-11 05:53] LABS: BASOPHILS % (AUTO) 0.7 % (0.0-2.0); EOSINOPHILS % (AUTO) 2.2 % (1.0-6.0); HEMATOCRIT 29.4 % (41-53); HEMOGLOBIN 9.7 g/dL (13.5-17.5); LYMPHOCYTES # (AUTO) 0.5 K/uL (1.0-4.8); LYMPHOCYTES % (AUTO) 4.8 % (22.0-44.0); MEAN CORPUSCULAR HEMOGLOBIN 30.5 pg (26.0-34.0); MEAN CORPUSCULAR VOLUME 92 fL (80-100); MONOCYTES # (AUTO) 0.4 K/uL (0.1-1.0); MONOCYTES % (AUTO) 3.7 % (2.0-9.0); NEUTROPHILS # (AUTO) 8.6 K/uL (1.8-7.7); PLATELET COUNT (AUTO) 195 K/uL (150-450); RED BLOOD CELL COUNT(AUTO) 3.18 MIL/uL (4.50-5.90); RED CELL DISTRIBUTION WIDTH 14.3 % (11.5-14.5)
[2020-10-11 05:54] LABS: NEUTROPHILS % (AUTO) 88.6 % (40.0-70.0)
[2020-10-11 06:02] LABS: ALBUMIN 1.2 g/dL (3.4-5.0); BILIRUBIN,TOTAL 0.3 mg/dL (0.1-1.0); CALCIUM, TOTAL 8.5 mg/dL (8.8-10.5); CREATININE 1.71 mg/dL (0.60-1.30); MAGNESIUM 2.1 mg/dL (1.80-2.40); PHOSPHORUS 3.8 mg/dL (2.5-4.9); POTASSIUM 4.1 mmol/L (3.5-5.1); TOTAL PROTEIN, SERUM 5.9 g/dL (6.4-8.2)
[2020-10-11] MEDS: FentaNYL CIT 1000MCG/D5%-WATER 100 ML IV PRN ×2 (06:47→08:49)
[2020-10-11] MEDS: CISATRACURIUM BESYLATE 100 MG in DEXTROSE 5%-WATER 240 ML IV PRN (06:49)
[2020-10-11 08:00] VITALS: BP 123/37
[2020-10-11] MEDS: ASCORBIC ACID 500 MG TABLET PO SCH (08:30)
[2020-10-11] MEDS: DOCUSATE SODIUM 100 MG CAPSULE PO SCH ×2 (08:30→20:58)
[2020-10-11] MEDS: CHOLECALCIFEROL (VIT D3) 1,000 UNITS [25 MCG] TABLET PO SCH (08:30)
[2020-10-11] MEDS: APIXABAN 5 MG TABLET PO SCH ×2 (08:31→20:58)
[2020-10-11] MEDS: ZINC SULFATE 220 MG CAPSULE PO SCH (08:31)
[2020-10-11] MEDS: METOCLOPRAMIDE HCL 5 MG/ML 2 ML VIAL IVP SCH ×2 (08:31→15:22)
[2020-10-11] MEDS: FUROSEMIDE 20 MG/2 ML VIAL IVP SCH (08:31)
[2020-10-11] MEDS: FAMOTIDINE 20 MG TABLET PO SCH (08:31)
[2020-10-11] MEDS: DEXAMETHASONE SOD PHOS 4 MG/ML VIAL IVP SCH (08:32)
[2020-10-11] MEDS: INSULIN GLARGINE,HUM.REC.ANLOG 100 UNITS/ML SQ SCH ×2 (08:33→21:00)
[2020-10-11] MEDS ORDERED: LACTULOSE 20 GM/30 ML SOLUTION UDCUP PO PRN (08:45)
[2020-10-11 12:00] VITALS: BP 145/45
[2020-10-11 12:03] LABS: GLUCOSE,POINT OF CARE 119 MG/DL (70-110)
[2020-10-11] MEDS: CefTRIAXone SODIUM 2 GM in DEXTROSE 5%-WATER 50 ML IV SCH (12:11)
[2020-10-11] MEDS: AMINO ACIDS/PROTEIN HYDROLYS 30 ML TUBE GT SCH (14:06)
[2020-10-11] MEDS: MIDAZOLAM HCL 100 MG in DEXTROSE 5%-WATER 180 ML IV PRN (14:26)
[2020-10-11 16:00] VITALS: BP 90/30
[2020-10-11 17:51] LABS: GLUCOSE,POINT OF CARE 107 MG/DL (70-110)
[2020-10-11] MEDS: INSULIN LISPRO 100 UNITS/ML SQ PRN ×2 (18:14→23:42)
[2020-10-11 19:11] LABS: GLUCOSE,POINT OF CARE 165 MG/DL (70-110)
[2020-10-11 20:00] VITALS: BP 110/42
[2020-10-11 21:43] LABS: GLUCOSE,POINT OF CARE 147 MG/DL (70-110)
[2020-10-12] VITALS: BP 145/48
[2020-10-12] MEDS ORDERED: SODIUM CHLORIDE 0.9% 250 ML IV ONE (00:21)
[2020-10-12] MEDS ORDERED: SODIUM CHLORIDE 0.9% 500 ML IV ONE (00:21)
[2020-10-12 04:00] VITALS: BP 145/55
[2020-10-12] MEDS: CISATRACURIUM BESYLATE 100 MG in DEXTROSE 5%-WATER 240 ML IV PRN ×2 (04:09→16:53)
[2020-10-12] MEDS: PROPOFOL 1000 MG/ISO-OSM 100 ML IV PRN ×5 (04:18→20:55)
[2020-10-12 06:02] LABS: GLUCOSE,POINT OF CARE 124 MG/DL (70-110)
[2020-10-12 06:48] LABS: GLUCOSE,POINT OF CARE 76 MG/DL (70-110)
[2020-10-12 06:54] LABS: C-REACTIVE PROTEIN QUANT 12.89 mg/dL (0.00-0.30); CALCIUM, TOTAL 8.7 mg/dL (8.8-10.5); CREATININE 1.58 mg/dL (0.60-1.30); MAGNESIUM 2.2 mg/dL (1.80-2.40); PHOSPHORUS 3.5 mg/dL (2.5-4.9); POTASSIUM 3.5 mmol/L (3.5-5.1)
[2020-10-12 08:00] VITALS: BP 124/38
[2020-10-12] MEDS: CHOLECALCIFEROL (VIT D3) 1,000 UNITS [25 MCG] TABLET PO SCH (08:27)
[2020-10-12] MEDS: DEXAMETHASONE SOD PHOS 4 MG/ML VIAL IVP SCH (08:27)
[2020-10-12] MEDS: FUROSEMIDE 20 MG/2 ML VIAL IVP SCH (08:27)
[2020-10-12] MEDS: FAMOTIDINE 20 MG TABLET PO SCH (08:27)
[2020-10-12] MEDS: ZINC SULFATE 220 MG CAPSULE PO SCH (08:28)
[2020-10-12] MEDS: ASCORBIC ACID 500 MG TABLET PO SCH (08:28)
[2020-10-12] MEDS: DOCUSATE SODIUM 100 MG CAPSULE PO SCH ×2 (08:28→20:33)
[2020-10-12] MEDS: APIXABAN 5 MG TABLET PO SCH ×2 (08:28→20:33)
[2020-10-12] MEDS: METOCLOPRAMIDE HCL 5 MG/ML 2 ML VIAL IVP SCH ×3 (08:28→16:23)
[2020-10-12] MEDS: INSULIN GLARGINE,HUM.REC.ANLOG 100 UNITS/ML SQ SCH ×2 (08:29→21:00)
[2020-10-12 10:47] LABS: ABG A-A DIFF O2 603.2 mmHg (10-20.0); ABG BASE EXCESS 2.3 mmol/L (-2.0-3.0); ABG CARBOXYHEMOGLOBIN 0.9 % (0.0-1.5); ABG HCO3 25.8 mmol/L (22.0-26.0); ABG METHEMOGLOBIN 0.3 % (0.0-1.5); ABG OXYGEN CONTENT 13.7 mL/dL (15.0-23.0); ABG OXYGEN SATURATION 91.3 % (95.0-98.0); ABG OXYHEMOGLOBIN 90.2 % (94.0-100.0); ABG PCO2 51 mmHg (35-45); ABG PH 7.357 (7.35-7.450); ABG TOTAL HEMOGLOBIN 10.8 G/dL (12.0-18.0); O2 DEVICE,BLOOD GAS VENTILATOR (ROOM AIR); PEEP,BG 12 cm H2O; PO2, ARTERIAL BG 60.2 mmHg (75.0-83.0); SITE, BLOOD GAS ARTERIAL LINE; SOURCE, BLOOD GAS ARTERIAL; TEMPERATURE, FAHRENHEIT, BG 97.9 FAHREN (96.0-98.6); VENT MODE, BG Press. Control Vent (ROOM AIR)
[2020-10-12 10:48] LABS: SPONTANEOUS VT, BG 502 ml
[2020-10-12] MEDS: CefTRIAXone SODIUM 2 GM in DEXTROSE 5%-WATER 50 ML IV SCH (11:29)
[2020-10-12 11:56] LABS: GLUCOSE,POINT OF CARE 75 MG/DL (70-110)
[2020-10-12 12:00] VITALS: BP 114/36
[2020-10-12] MEDS: AMINO ACIDS/PROTEIN HYDROLYS 30 ML TUBE GT SCH (14:13)
[2020-10-12] MEDS: FentaNYL CIT 1000MCG/D5%-WATER 100 ML IV PRN ×2 (15:32→23:45)
[2020-10-12] MEDS: MIDAZOLAM HCL 100 MG in DEXTROSE 5%-WATER 180 ML IV PRN (15:33)
[2020-10-12 16:00] VITALS: BP 104/42
[2020-10-12] MEDS: FLUCONAZOLE 400 MG/NACL ISOOSM 200 ML IV SCH (16:23)
[2020-10-12] MEDS: INSULIN LISPRO 100 UNITS/ML SQ PRN (18:52)
[2020-10-12 20:00] VITALS: BP 125/47
[2020-10-12 20:23] LABS: GLUCOSE,POINT OF CARE 155 MG/DL (70-110)
[2020-10-13] VITALS: BP 167/58
[2020-10-13] MEDS: METOCLOPRAMIDE HCL 5 MG/ML 2 ML VIAL IVP SCH ×4 (00:46→23:18)
[2020-10-13 00:51] LABS: GLUCOSE,POINT OF CARE 111 MG/DL (70-110)
[2020-10-13 00:51] LABS: GLUCOSE,POINT OF CARE 132 MG/DL (70-110)
[2020-10-13] MEDS: PROPOFOL 1000 MG/ISO-OSM 100 ML IV PRN ×4 (01:34→23:16)
[2020-10-13 04:00] VITALS: BP 141/47
[2020-10-13] MEDS: CISATRACURIUM BESYLATE 100 MG in DEXTROSE 5%-WATER 240 ML IV PRN ×2 (04:06→15:22)
[2020-10-13] MEDS ORDERED: SUCCINYLCHOLINE CHLORIDE 20 MG/ML 10 ML VIAL ONE (04:12)
[2020-10-13] MEDS ORDERED: ROCURONIUM BROMIDE 10 MG/ML 5 ML VIAL ONE (04:13)
[2020-10-13] MEDS ORDERED: ROCURONIUM BROMIDE 10 MG/ML 5 ML VIAL IVP ONE (04:55)
[2020-10-13 06:23] LABS: GLUCOSE,POINT OF CARE 105 MG/DL (70-110)
[2020-10-13 06:29] LABS: CALCIUM, TOTAL 8.5 mg/dL (8.8-10.5); CREATININE 1.4 mg/dL (0.60-1.30); MAGNESIUM 2.2 mg/dL (1.80-2.40); PHOSPHORUS 3.2 mg/dL (2.5-4.9); POTASSIUM 3.5 mmol/L (3.5-5.1)
[2020-10-13] MEDS: FentaNYL CIT 1000MCG/D5%-WATER 100 ML IV PRN ×3 (07:43→22:28)
[2020-10-13 08:00] VITALS: BP 135/41
[2020-10-13] MEDS: DEXAMETHASONE SOD PHOS 4 MG/ML VIAL IVP SCH (08:47)
[2020-10-13] MEDS: FAMOTIDINE 20 MG TABLET PO SCH (08:47)
[2020-10-13] MEDS: CHOLECALCIFEROL (VIT D3) 1,000 UNITS [25 MCG] TABLET PO SCH (08:47)
[2020-10-13] MEDS: ZINC SULFATE 220 MG CAPSULE PO SCH (08:48)
[2020-10-13] MEDS: DOCUSATE SODIUM 100 MG CAPSULE PO SCH ×2 (08:48→20:05)
[2020-10-13] MEDS: APIXABAN 5 MG TABLET PO SCH ×2 (08:48→20:05)
[2020-10-13] MEDS: ASCORBIC ACID 500 MG TABLET PO SCH (08:48)
[2020-10-13] MEDS: INSULIN GLARGINE,HUM.REC.ANLOG 100 UNITS/ML SQ SCH ×2 (08:53→21:14)
[2020-10-13 12:00] VITALS: BP 122/37
[2020-10-13] MEDS ORDERED: SODIUM CHLORIDE 0.9% 250 ML IV ONE (12:24)
[2020-10-13] MEDS: CeFAZolin 1 GM/DEXTROSE 50 ML IV SCH ×2 (12:30→20:05)
[2020-10-13] MEDS: INSULIN LISPRO 100 UNITS/ML SQ PRN ×3 (13:05→23:20)
[2020-10-13] MEDS: AMINO ACIDS/PROTEIN HYDROLYS 30 ML TUBE GT SCH (14:06)
[2020-10-13] MEDS: MIDAZOLAM HCL 100 MG in DEXTROSE 5%-WATER 180 ML IV PRN (14:08)
[2020-10-13 14:19] LABS: ABG A-A DIFF O2 589.9 mmHg (10-20.0); ABG BASE EXCESS 3.2 mmol/L (-2.0-3.0); ABG CARBOXYHEMOGLOBIN 0.7 % (0.0-1.5); ABG HCO3 26.8 mmol/L (22.0-26.0); ABG METHEMOGLOBIN 0.3 % (0.0-1.5); ABG OXYGEN CONTENT 13.1 mL/dL (15.0-23.0); ABG OXYGEN SATURATION 96.5 % (95.0-98.0); ABG OXYHEMOGLOBIN 95.5 % (94.0-100.0); ABG PCO2 47 mmHg (35-45); ABG PH 7.396 (7.35-7.450); ABG TOTAL HEMOGLOBIN 9.7 G/dL (12.0-18.0); PO2, ARTERIAL BG 79.7 mmHg (75.0-83.0); SOURCE, BLOOD GAS ARTERIAL; TEMPERATURE, FAHRENHEIT, BG 96.3 FAHREN (96.0-98.6)
[2020-10-13 14:20] LABS: INSPIRATORY TIME, BG 0.8 SEC; O2 DEVICE,BLOOD GAS VENTILATOR (ROOM AIR); PEEP,BG 12 cm H2O; SITE, BLOOD GAS ARTERIAL LINE; SPONTANEOUS VT, BG 491 ml; VENT MODE, BG Press. Control Vent (ROOM AIR)
[2020-10-13 15:15] LABS: GLUCOSE,POINT OF CARE 158 MG/DL (70-110)
[2020-10-13 16:00] VITALS: BP 110/38
[2020-10-13] MEDS: FLUCONAZOLE 400 MG/NACL ISOOSM 200 ML IV SCH (17:07)
[2020-10-13 18:13] LABS: GLUCOSE,POINT OF CARE 169 MG/DL (70-110)
[2020-10-13 20:00] VITALS: BP 121/38
[2020-10-13 23:26] LABS: GLUCOSE,POINT OF CARE 142 MG/DL (70-110)
[2020-10-14] VITALS: BP 123/34
[2020-10-14] MEDS: CISATRACURIUM BESYLATE 100 MG in DEXTROSE 5%-WATER 240 ML IV PRN ×3 (02:21→21:25)
[2020-10-14] MEDS: CeFAZolin 1 GM/DEXTROSE 50 ML IV SCH ×3 (03:37→20:30)
[2020-10-14 04:00] VITALS: BP 180/42
[2020-10-14] MEDS: PROPOFOL 1000 MG/ISO-OSM 100 ML IV PRN ×5 (04:12→19:47)
[2020-10-14 06:38] LABS: CREATININE 1.26 mg/dL (0.60-1.30); POTASSIUM 3.9 mmol/L (3.5-5.1)
[2020-10-14 06:39] LABS: CALCIUM, TOTAL 8.4 mg/dL (8.8-10.5); MAGNESIUM 2.1 mg/dL (1.80-2.40)
[2020-10-14 08:00] VITALS: BP 143/49
[2020-10-14] MEDS: METOCLOPRAMIDE HCL 5 MG/ML 2 ML VIAL IVP SCH ×2 (08:07→16:20)
[2020-10-14] MEDS: DEXAMETHASONE SOD PHOS 4 MG/ML VIAL IVP SCH (08:08)
[2020-10-14] MEDS: APIXABAN 5 MG TABLET PO SCH ×2 (08:08→20:30)
[2020-10-14] MEDS: BISACODYL 10 MG RECTAL RECTAL SUPPOSITORY PR PRN (08:08)
[2020-10-14] MEDS: CHOLECALCIFEROL (VIT D3) 1,000 UNITS [25 MCG] TABLET PO SCH (08:08)
[2020-10-14] MEDS: ASCORBIC ACID 500 MG TABLET PO SCH (08:08)
[2020-10-14] MEDS: DOCUSATE SODIUM 100 MG CAPSULE PO SCH ×2 (08:08→20:30)
[2020-10-14] MEDS: ZINC SULFATE 220 MG CAPSULE PO SCH (08:08)
[2020-10-14] MEDS: FAMOTIDINE 20 MG TABLET PO SCH (08:08)
[2020-10-14] MEDS: MIDAZOLAM HCL 100 MG in DEXTROSE 5%-WATER 180 ML IV PRN (08:10)
[2020-10-14] MEDS: INSULIN GLARGINE,HUM.REC.ANLOG 100 UNITS/ML SQ SCH ×2 (08:18→20:31)
[2020-10-14 08:19] LABS: GLUCOSE,POINT OF CARE 122 MG/DL (70-110)
[2020-10-14 08:19] LABS: GLUCOSE,POINT OF CARE 166 MG/DL (70-110)
[2020-10-14] MEDS: FentaNYL CIT 1000MCG/D5%-WATER 100 ML IV PRN ×3 (09:18→19:47)
[2020-10-14 11:36] LABS: GLUCOSE,POINT OF CARE 137 MG/DL (70-110)
[2020-10-14 12:00] VITALS: BP 126/47
[2020-10-14] MEDS: AMINO ACIDS/PROTEIN HYDROLYS 30 ML TUBE GT SCH (15:01)
[2020-10-14 16:00] VITALS: BP 124/50
[2020-10-14] MEDS: FLUCONAZOLE 400 MG/NACL ISOOSM 200 ML IV SCH (16:20)
[2020-10-14 17:51] LABS: GLUCOSE,POINT OF CARE 174 MG/DL (70-110)
[2020-10-14] MEDS: INSULIN LISPRO 100 UNITS/ML SQ PRN (17:54)
[2020-10-14 20:00] VITALS: BP 124/49
[2020-10-15] VITALS: BP 133/49
[2020-10-15] MEDS: PROPOFOL 1000 MG/ISO-OSM 100 ML IV PRN ×5 (00:43→19:48)
[2020-10-15] MEDS: MIDAZOLAM HCL 100 MG in DEXTROSE 5%-WATER 180 ML IV PRN ×2 (00:44→14:43)
[2020-10-15] MEDS: INSULIN LISPRO 100 UNITS/ML SQ PRN ×2 (00:45→17:23)
[2020-10-15] MEDS: METOCLOPRAMIDE HCL 5 MG/ML 2 ML VIAL IVP SCH ×3 (00:47→16:26)
[2020-10-15] MEDS: FentaNYL CIT 1000MCG/D5%-WATER 100 ML IV PRN ×4 (02:33→19:47)
[2020-10-15 04:00] VITALS: BP 148/51
[2020-10-15] MEDS: CeFAZolin 1 GM/DEXTROSE 50 ML IV SCH ×3 (04:53→22:10)
[2020-10-15] MEDS: CISATRACURIUM BESYLATE 100 MG in DEXTROSE 5%-WATER 240 ML IV PRN ×3 (05:36→22:10)
[2020-10-15 06:38] LABS: GLUCOSE,POINT OF CARE 176 MG/DL (70-110)
[2020-10-15 06:50] LABS: BASOPHILS % (AUTO) 0.7 % (0.0-2.0); EOSINOPHILS % (AUTO) 3.2 % (1.0-6.0); HEMATOCRIT 25.7 % (41-53); HEMOGLOBIN 8.7 g/dL (13.5-17.5); LYMPHOCYTES # (AUTO) 0.4 K/uL (1.0-4.8); LYMPHOCYTES % (AUTO) 5.4 % (22.0-44.0); MEAN CORPUSCULAR HEMOGLOBIN 31.4 pg (26.0-34.0); MEAN CORPUSCULAR VOLUME 92 fL (80-100); MONOCYTES # (AUTO) 0.3 K/uL (0.1-1.0); MONOCYTES % (AUTO) 3.7 % (2.0-9.0); NEUTROPHILS # (AUTO) 6.3 K/uL (1.8-7.7); PLATELET COUNT (AUTO) 215 K/uL (150-450); RED BLOOD CELL COUNT(AUTO) 2.79 MIL/uL (4.50-5.90); RED CELL DISTRIBUTION WIDTH 14.7 % (11.5-14.5)
[2020-10-15 07:06] LABS: GLUCOSE,POINT OF CARE 147 MG/DL (70-110)
[2020-10-15 07:35] LABS: ALANINE AMINOTRANSFERASE 21 U/L (12-78); ALBUMIN 1.2 g/dL (3.4-5.0); ALKALINE PHOSPHATASE 103 U/L (46-116); ANION GAP 6 mmol/L (8-16); ASPARTATE AMINOTRANSFERASE 22 U/L (15-37); BILIRUBIN,TOTAL 0.2 mg/dL (0.1-1.0); CALCIUM, TOTAL 8.4 mg/dL (8.8-10.5); CARBON DIOXIDE 28 mmol/L (22-29); CHLORIDE 99 mmol/L (98-107); GLOMERULAR FILTR. RATE CALC > 60 mL/min (>60); GLUCOSE,RANDOM 161 mg/dL (70-110); POTASSIUM 4.1 mmol/L (3.5-5.1); SODIUM SERUM 133 mmol/L (136-145); TOTAL PROTEIN, SERUM 5.4 g/dL (6.4-8.2); UREA NITROGEN, BLOOD 51 mg/dL (7-18)
[2020-10-15 07:36] LABS: % IRON SATURATION 35.4 % (30-44); IRON, SERUM 56 mcg/dL (50-175); TOTAL IRON BINDING CAPACITY 158 mcg/dL (250-450)
[2020-10-15 08:00] VITALS: BP 126/45
[2020-10-15] MEDS: APIXABAN 5 MG TABLET PO SCH ×2 (08:12→22:11)
[2020-10-15] MEDS: FAMOTIDINE 20 MG TABLET PO SCH (08:12)
[2020-10-15] MEDS: DOCUSATE SODIUM 100 MG CAPSULE PO SCH ×2 (08:13→22:11)
[2020-10-15] MEDS: CHOLECALCIFEROL (VIT D3) 1,000 UNITS [25 MCG] TABLET PO SCH (08:13)
[2020-10-15] MEDS: ASCORBIC ACID 500 MG TABLET PO SCH (08:13)
[2020-10-15] MEDS: DEXAMETHASONE SOD PHOS 4 MG/ML VIAL IVP SCH (08:13)
[2020-10-15] MEDS: ZINC SULFATE 220 MG CAPSULE PO SCH (08:13)
[2020-10-15] MEDS: EPOETIN ALFA 10,000 UNITS/ML VIAL SQ SCH (08:14)
[2020-10-15] MEDS: INSULIN GLARGINE,HUM.REC.ANLOG 100 UNITS/ML SQ SCH ×2 (08:15→22:13)
[2020-10-15] MEDS ORDERED: DIAZEPAM 5 MG TABLET PO SCH (09:45)
[2020-10-15 12:00] VITALS: BP 146/50
[2020-10-15 12:13] LABS: GLUCOSE,POINT OF CARE 139 MG/DL (70-110)
[2020-10-15] MEDS: AMINO ACIDS/PROTEIN HYDROLYS 30 ML TUBE GT SCH (13:23)
[2020-10-15] MEDS ORDERED: FUROSEMIDE 20 MG/2 ML VIAL IVP ONE (14:30)
[2020-10-15 16:00] VITALS: BP 115/49
[2020-10-15] MEDS: FLUCONAZOLE 400 MG/NACL ISOOSM 200 ML IV SCH (16:26)
[2020-10-15 20:00] VITALS: BP 125/53
[2020-10-15] MEDS: QUEtiapine FUMARATE 25 MG TABLET NG SCH (22:12)
[2020-10-15] MEDS: DIAZEPAM 5 MG TABLET NG SCH (22:12)
[2020-10-16] VITALS: BP 124/51
[2020-10-16] MEDS: METOCLOPRAMIDE HCL 5 MG/ML 2 ML VIAL IVP SCH ×3 (00:19→16:28)
[2020-10-16 00:42] LABS: GLUCOSE,POINT OF CARE 158 MG/DL (70-110)
[2020-10-16] MEDS: INSULIN LISPRO 100 UNITS/ML SQ PRN ×2 (00:44→18:09)
[2020-10-16 00:48] LABS: GLUCOSE,POINT OF CARE 152 MG/DL (70-110)
[2020-10-16] MEDS: PROPOFOL 1000 MG/ISO-OSM 100 ML IV PRN ×5 (02:08→21:06)
[2020-10-16] MEDS: CeFAZolin 1 GM/DEXTROSE 50 ML IV SCH ×3 (03:27→20:32)
[2020-10-16 04:00] VITALS: BP 151/52
[2020-10-16] MEDS: FentaNYL CIT 1000MCG/D5%-WATER 100 ML IV PRN ×3 (04:46→20:33)
[2020-10-16] MEDS: NOREPINEPHRINE 4 MG/D5%-WATER 250 ML IV PRN (06:22)
[2020-10-16 06:55] LABS: GLUCOSE,POINT OF CARE 127 MG/DL (70-110)
[2020-10-16] MEDS: CISATRACURIUM BESYLATE 100 MG in DEXTROSE 5%-WATER 240 ML IV PRN ×3 (07:04→20:33)
[2020-10-16 08:00] VITALS: BP 190/68
[2020-10-16] MEDS: ZINC SULFATE 220 MG CAPSULE PO SCH (08:56)
[2020-10-16] MEDS: DOCUSATE SODIUM 100 MG CAPSULE PO SCH ×2 (08:56→20:33)
[2020-10-16] MEDS: CHOLECALCIFEROL (VIT D3) 1,000 UNITS [25 MCG] TABLET PO SCH (08:57)
[2020-10-16] MEDS: FAMOTIDINE 20 MG TABLET PO SCH (08:57)
[2020-10-16] MEDS: APIXABAN 5 MG TABLET PO SCH ×2 (08:57→20:33)
[2020-10-16] MEDS: DEXAMETHASONE SOD PHOS 4 MG/ML VIAL IVP SCH (08:57)
[2020-10-16] MEDS: DIAZEPAM 5 MG TABLET NG SCH ×2 (08:57→20:33)
[2020-10-16] MEDS: ASCORBIC ACID 500 MG TABLET PO SCH (08:57)
[2020-10-16] MEDS: INSULIN GLARGINE,HUM.REC.ANLOG 100 UNITS/ML SQ SCH ×2 (09:09→20:34)
[2020-10-16 12:00] VITALS: BP 148/55
[2020-10-16] MEDS ORDERED: SODIUM CHLORIDE 0.9% 250 ML IV ONE (12:30)
[2020-10-16 14:43] LABS: ABG A-A DIFF O2 641.5 mmHg (10-20.0); ABG BASE EXCESS 3.5 mmol/L (-2.0-3.0); ABG CARBOXYHEMOGLOBIN 0.8 % (0.0-1.5); ABG HCO3 27.4 mmol/L (22.0-26.0); ABG METHEMOGLOBIN 0.3 % (0.0-1.5); ABG OXYGEN CONTENT 12.7 mL/dL (15.0-23.0); ABG OXYGEN SATURATION 84.6 % (95.0-98.0); ABG OXYHEMOGLOBIN 83.7 % (94.0-100.0); ABG PCO2 34 mmHg (35-45); ABG PH 7.507 (7.35-7.450); ABG TOTAL HEMOGLOBIN 10.8 G/dL (12.0-18.0); PO2, ARTERIAL BG 40.2 mmHg (75.0-83.0); SOURCE, BLOOD GAS ARTERIAL; TEMPERATURE, FAHRENHEIT, BG 96.4 FAHREN (96.0-98.6)
[2020-10-16 14:44] LABS: O2 DEVICE,BLOOD GAS VENTILATOR (ROOM AIR); PEEP,BG 12 cm H2O; SITE, BLOOD GAS ARTERIAL LINE; VENT MODE, BG Press. Control Vent (ROOM AIR)
[2020-10-16] MEDS: MIDAZOLAM HCL 100 MG in DEXTROSE 5%-WATER 180 ML IV PRN (15:39)
[2020-10-16] MEDS: FLUCONAZOLE 400 MG/NACL ISOOSM 200 ML IV SCH (15:40)
[2020-10-16 16:00] VITALS: BP 162/61
[2020-10-16] MEDS: AMINO ACIDS/PROTEIN HYDROLYS 30 ML TUBE GT SCH (16:59)
[2020-10-16 19:29] LABS: GLUCOSE,POINT OF CARE 161 MG/DL (70-110)
[2020-10-16 19:29] LABS: GLUCOSE,POINT OF CARE 140 MG/DL (70-110)
[2020-10-16 20:00] VITALS: BP 108/52
[2020-10-16] MEDS: QUEtiapine FUMARATE 25 MG TABLET NG SCH (20:33)
[2020-10-17] VITALS: BP 111/53
[2020-10-17] MEDS: METOCLOPRAMIDE HCL 5 MG/ML 2 ML VIAL IVP SCH ×3 (00:47→16:16)
[2020-10-17 01:11] LABS: GLUCOSE,POINT OF CARE 159 MG/DL (70-110)
[2020-10-17] MEDS: PROPOFOL 1000 MG/ISO-OSM 100 ML IV PRN ×5 (01:49→19:45)
[2020-10-17 04:00] VITALS: BP 146/66
[2020-10-17] MEDS: CeFAZolin 1 GM/DEXTROSE 50 ML IV SCH ×3 (04:25→20:58)
[2020-10-17] MEDS: FentaNYL CIT 1000MCG/D5%-WATER 100 ML IV PRN ×3 (04:48→19:44)
[2020-10-17] MEDS: CISATRACURIUM BESYLATE 100 MG in DEXTROSE 5%-WATER 240 ML IV PRN ×3 (04:49→19:45)
[2020-10-17 06:31] LABS: GLUCOSE,POINT OF CARE 144 MG/DL (70-110)
[2020-10-17 08:00] VITALS: BP 139/59
[2020-10-17] MEDS: ZINC SULFATE 220 MG CAPSULE PO SCH (08:51)
[2020-10-17] MEDS: DOCUSATE SODIUM 100 MG CAPSULE PO SCH ×2 (08:51→21:11)
[2020-10-17] MEDS: ASCORBIC ACID 500 MG TABLET PO SCH (08:51)
[2020-10-17] MEDS: FAMOTIDINE 20 MG TABLET PO SCH (08:51)
[2020-10-17] MEDS: CHOLECALCIFEROL (VIT D3) 1,000 UNITS [25 MCG] TABLET PO SCH (08:52)
[2020-10-17] MEDS: APIXABAN 5 MG TABLET PO SCH ×2 (08:52→21:11)
[2020-10-17] MEDS: DIAZEPAM 5 MG TABLET NG SCH ×2 (08:52→21:11)
[2020-10-17] MEDS: AMINO ACIDS/PROTEIN HYDROLYS 30 ML TUBE GT SCH ×3 (08:53→17:55)
[2020-10-17] MEDS: DEXAMETHASONE SOD PHOS 4 MG/ML VIAL IVP SCH (08:53)
[2020-10-17] MEDS: INSULIN GLARGINE,HUM.REC.ANLOG 100 UNITS/ML SQ SCH ×2 (08:55→21:15)
[2020-10-17] MEDS: MIDAZOLAM HCL 100 MG in DEXTROSE 5%-WATER 180 ML IV PRN (10:34)
[2020-10-17] MEDS ORDERED: SODIUM CHLORIDE 0.9% 500 ML IV ONE (11:03)
[2020-10-17 11:09] LABS: BASOPHILS % (AUTO) 0.6 % (0.0-2.0); EOSINOPHILS % (AUTO) 3.3 % (1.0-6.0); HEMATOCRIT 32.2 % (41-53); HEMOGLOBIN 10.3 g/dL (13.5-17.5); LYMPHOCYTES # (AUTO) 0.5 K/uL (1.0-4.8); MEAN CORPUSCULAR HEMOGLOBIN 29.5 pg (26.0-34.0); MEAN CORPUSCULAR HGB CONC 32.1 G/dL (31.0-37.0); MEAN CORPUSCULAR VOLUME 92 fL (80-100); MONOCYTES # (AUTO) 0.2 K/uL (0.1-1.0); MONOCYTES % (AUTO) 1.8 % (2.0-9.0); NEUTROPHILS # (AUTO) 11.3 K/uL (1.8-7.7); PLATELET COUNT (AUTO) 267 K/uL (150-450); RED CELL DISTRIBUTION WIDTH 14.8 % (11.5-14.5)
[2020-10-17 11:14] LABS: NEUTROPHILS % (AUTO) 90.3 % (40.0-70.0)
[2020-10-17 11:19] LABS: ANION GAP 6 mmol/L (8-16); CALCIUM, TOTAL 8.2 mg/dL (8.8-10.5); CARBON DIOXIDE 29 mmol/L (22-29); CHLORIDE 97 mmol/L (98-107); CREATININE 1.14 mg/dL (0.60-1.30); GLOMERULAR FILTR. RATE CALC > 60 mL/min (>60); GLUCOSE,RANDOM 127 mg/dL (70-110); POTASSIUM 4.1 mmol/L (3.5-5.1); SODIUM SERUM 132 mmol/L (136-145); UREA NITROGEN, BLOOD 51 mg/dL (7-18)
[2020-10-17 11:20] LABS: PHOSPHORUS 3.1 mg/dL (2.5-4.9)
[2020-10-17 12:00] VITALS: BP 110/50
[2020-10-17 13:36] LABS: GLUCOSE,POINT OF CARE 118 MG/DL (70-110)
[2020-10-17 16:00] VITALS: BP 128/54
[2020-10-17] MEDS: FLUCONAZOLE 400 MG/NACL ISOOSM 200 ML IV SCH (16:17)
[2020-10-17 19:10] LABS: GLUCOSE,POINT OF CARE 128 MG/DL (70-110)
[2020-10-17 20:00] VITALS: BP 150/64
[2020-10-17] MEDS: QUEtiapine FUMARATE 25 MG TABLET NG SCH (21:11)
[2020-10-18] VITALS: BP 149/63
[2020-10-18 00:28] LABS: GLUCOSE,POINT OF CARE 184 MG/DL (70-110)
[2020-10-18] MEDS: METOCLOPRAMIDE HCL 5 MG/ML 2 ML VIAL IVP SCH ×4 (00:32→23:53)
[2020-10-18] MEDS: INSULIN LISPRO 100 UNITS/ML SQ PRN ×6 (00:33→23:29)
[2020-10-18] MEDS: PROPOFOL 1000 MG/ISO-OSM 100 ML IV PRN ×5 (00:58→21:37)
[2020-10-18] MEDS: FentaNYL CIT 1000MCG/D5%-WATER 100 ML IV PRN ×3 (02:52→17:42)
[2020-10-18] MEDS: CISATRACURIUM BESYLATE 100 MG in DEXTROSE 5%-WATER 240 ML IV PRN ×2 (03:53→20:33)
[2020-10-18] MEDS: CeFAZolin 1 GM/DEXTROSE 50 ML IV SCH ×3 (03:54→19:43)
[2020-10-18 04:00] VITALS: BP 136/56
[2020-10-18 06:15] LABS: BASOPHILS % (AUTO) 0.3 % (0.0-2.0); EOSINOPHILS % (AUTO) 1.1 % (1.0-6.0); HEMATOCRIT 28.9 % (41-53); HEMOGLOBIN 9.7 g/dL (13.5-17.5); LYMPHOCYTES # (AUTO) 0.5 K/uL (1.0-4.8); LYMPHOCYTES % (AUTO) 5.7 % (22.0-44.0); MEAN CORPUSCULAR HEMOGLOBIN 30.8 pg (26.0-34.0); MEAN CORPUSCULAR HGB CONC 33.7 G/dL (31.0-37.0); MEAN CORPUSCULAR VOLUME 92 fL (80-100); MONOCYTES # (AUTO) 0.2 K/uL (0.1-1.0); MONOCYTES % (AUTO) 2.2 % (2.0-9.0); NEUTROPHILS # (AUTO) 8.2 K/uL (1.8-7.7); PLATELET COUNT (AUTO) 267 K/uL (150-450); RED BLOOD CELL COUNT(AUTO) 3.15 MIL/uL (4.50-5.90); RED CELL DISTRIBUTION WIDTH 15.3 % (11.5-14.5)
[2020-10-18 06:20] LABS: ANION GAP 10 mmol/L (8-16); CALCIUM, TOTAL 7.9 mg/dL (8.8-10.5); CARBON DIOXIDE 26 mmol/L (22-29); CHLORIDE 97 mmol/L (98-107); CREATININE 1.12 mg/dL (0.60-1.30); GLOMERULAR FILTR. RATE CALC > 60 mL/min (>60); GLUCOSE,RANDOM 176 mg/dL (70-110); POTASSIUM 4.2 mmol/L (3.5-5.1); SODIUM SERUM 133 mmol/L (136-145); UREA NITROGEN, BLOOD 45 mg/dL (7-18)
[2020-10-18] MEDS: MIDAZOLAM HCL 100 MG in DEXTROSE 5%-WATER 180 ML IV PRN (07:00)
[2020-10-18 07:03] LABS: NEUTROPHILS % (AUTO) 90.7 % (40.0-70.0)
[2020-10-18 07:09] LABS: GLUCOSE,POINT OF CARE 182 MG/DL (70-110)
[2020-10-18 08:00] VITALS: BP 99/54
[2020-10-18] MEDS: AMINO ACIDS/PROTEIN HYDROLYS 30 ML TUBE GT SCH ×3 (08:00→17:17)
[2020-10-18] MEDS: DEXAMETHASONE SOD PHOS 4 MG/ML VIAL IVP SCH (11:04)
[2020-10-18] MEDS: DIAZEPAM 5 MG TABLET NG SCH ×2 (11:04→21:37)
[2020-10-18] MEDS: APIXABAN 5 MG TABLET PO SCH ×2 (11:05→21:38)
[2020-10-18] MEDS: ZINC SULFATE 220 MG CAPSULE PO SCH (11:05)
[2020-10-18] MEDS: FAMOTIDINE 20 MG TABLET PO SCH (11:05)
[2020-10-18] MEDS: ASCORBIC ACID 500 MG TABLET PO SCH (11:05)
[2020-10-18] MEDS: DOCUSATE SODIUM 100 MG CAPSULE PO SCH ×2 (11:05→21:37)
[2020-10-18] MEDS: CHOLECALCIFEROL (VIT D3) 1,000 UNITS [25 MCG] TABLET PO SCH (11:06)
[2020-10-18] MEDS: EPOETIN ALFA 10,000 UNITS/ML VIAL SQ SCH (11:07)
[2020-10-18] MEDS: INSULIN GLARGINE,HUM.REC.ANLOG 100 UNITS/ML SQ SCH ×2 (11:09→20:36)
[2020-10-18 12:00] VITALS: BP 118/59
[2020-10-18 12:57] LABS: GLUCOSE,POINT OF CARE 181 MG/DL (70-110)
[2020-10-18 14:11] LABS: ABG A-A DIFF O2 648.2 mmHg (10-20.0); ABG BASE EXCESS 2.3 mmol/L (-2.0-3.0); ABG CARBOXYHEMOGLOBIN 1.1 % (0.0-1.5); ABG HCO3 25.8 mmol/L (22.0-26.0); ABG METHEMOGLOBIN 0.3 % (0.0-1.5); ABG OXYGEN CONTENT 11.3 mL/dL (15.0-23.0); ABG OXYHEMOGLOBIN 72.7 % (94.0-100.0); ABG PCO2 39 mmHg (35-45); ABG PH 7.446 (7.35-7.450); ABG TOTAL HEMOGLOBIN 11.1 G/dL (12.0-18.0); SOURCE, BLOOD GAS ARTERIAL
[2020-10-18 14:12] LABS: ABG OXYGEN SATURATION 73.7 % (95.0-98.0); O2 DEVICE,BLOOD GAS VENTILATOR (ROOM AIR); PEEP,BG 10 cm H2O; SITE, BLOOD GAS ART-LINE; VENT MODE, BG Press. Control Vent (ROOM AIR)
[2020-10-18 14:14] LABS: INSPIRATORY TIME, BG 0.9 SEC
[2020-10-18 16:00] VITALS: BP 148/67
[2020-10-18] MEDS: FLUCONAZOLE 400 MG/NACL ISOOSM 200 ML IV SCH (17:01)
[2020-10-18 19:13] LABS: APPEARANCE,URINE CLOUDY (CLEAR); BILIRUBIN,URINE NEGATIVE (NEGATIVE); GLUCOSE, URINE (UA) NEGATIVE (NEGATIVE); KETONES,URINE NEGATIVE (NEGATIVE); LEUKOCYTE ESTERASE ,URINE NEGATIVE (NEGATIVE); NITRATE,URINE NEGATIVE (NEGATIVE); OCCULT BLOOD,URINE NEGATIVE (NEGATIVE); PROTEIN,URINE TRACE (NEGATIVE); UROBILINOGEN,URINE 0.2 mg/dL (<=1.0)
[2020-10-18 19:21] LABS: BACTERIA,URINE Few /HPF (None Seen); RBC,URINE None Seen /HPF (0-2); WBC,URINE 0-2 /HPF (0-5); YEAST,URINE Moderate /HPF (None Seen)
[2020-10-18 19:30] LABS: GLUCOSE,POINT OF CARE 221 MG/DL (70-110)
[2020-10-18 20:00] VITALS: BP 103/50
[2020-10-18] MEDS: NOREPINEPHRINE 4 MG/D5%-WATER 250 ML IV PRN (20:33)
[2020-10-18] MEDS ORDERED: SODIUM CHLORIDE 0.9% 250 ML IV ONE (21:35)
[2020-10-18] MEDS: QUEtiapine FUMARATE 25 MG TABLET NG SCH (21:37)
[2020-10-18 23:36] LABS: GLUCOSE,POINT OF CARE 208 MG/DL (70-110)
[2020-10-19] VITALS: BP 123/52
[2020-10-19] MEDS ORDERED: SODIUM CHLORIDE 0.9% 250 ML IV ONE ×3 (01:53→22:33)
[2020-10-19] MEDS: FentaNYL CIT 1000MCG/D5%-WATER 100 ML IV PRN ×3 (02:02→18:14)
[2020-10-19] MEDS: NOREPINEPHRINE 4 MG/D5%-WATER 250 ML IV PRN ×2 (02:02→18:14)
[2020-10-19] MEDS: MIDAZOLAM HCL 100 MG in DEXTROSE 5%-WATER 180 ML IV PRN ×2 (02:03→22:39)
[2020-10-19 04:00] VITALS: BP 120/49
[2020-10-19] MEDS: CISATRACURIUM BESYLATE 100 MG in DEXTROSE 5%-WATER 240 ML IV PRN ×3 (04:02→22:38)
[2020-10-19] MEDS: PROPOFOL 1000 MG/ISO-OSM 100 ML IV PRN ×5 (04:16→22:38)
[2020-10-19] MEDS: CeFAZolin 1 GM/DEXTROSE 50 ML IV SCH ×3 (04:23→21:10)
[2020-10-19 04:36] LABS: GLUCOSE,POINT OF CARE 185 MG/DL (70-110)
[2020-10-19] MEDS: INSULIN LISPRO 100 UNITS/ML SQ PRN ×4 (05:18→21:12)
[2020-10-19 06:59] LABS: ALBUMIN 1.4 g/dL (3.4-5.0); BILIRUBIN,TOTAL 0.4 mg/dL (0.1-1.0); C-REACTIVE PROTEIN QUANT 9.65 mg/dL (0.00-0.30); CALCIUM, TOTAL 7.9 mg/dL (8.8-10.5); CREATININE 1.51 mg/dL (0.60-1.30); POTASSIUM 4.7 mmol/L (3.5-5.1); TOTAL PROTEIN, SERUM 5.6 g/dL (6.4-8.2)
[2020-10-19 08:00] VITALS: BP 147/52
[2020-10-19] MEDS: DIAZEPAM 5 MG TABLET NG SCH ×2 (08:55→21:10)
[2020-10-19] MEDS: ASCORBIC ACID 500 MG TABLET PO SCH (08:56)
[2020-10-19] MEDS: FAMOTIDINE 20 MG TABLET PO SCH (08:56)
[2020-10-19] MEDS: CHOLECALCIFEROL (VIT D3) 1,000 UNITS [25 MCG] TABLET PO SCH (08:56)
[2020-10-19] MEDS: ZINC SULFATE 220 MG CAPSULE PO SCH (08:56)
[2020-10-19] MEDS: DOCUSATE SODIUM 100 MG CAPSULE PO SCH ×2 (08:57→21:00)
[2020-10-19] MEDS: METOCLOPRAMIDE HCL 5 MG/ML 2 ML VIAL IVP SCH ×2 (08:57→16:19)
[2020-10-19] MEDS: APIXABAN 5 MG TABLET PO SCH ×2 (08:57→21:10)
[2020-10-19] MEDS: DEXAMETHASONE SOD PHOS 4 MG/ML VIAL IVP SCH (08:57)
[2020-10-19] MEDS: AMINO ACIDS/PROTEIN HYDROLYS 30 ML TUBE GT SCH ×3 (08:57→16:19)
[2020-10-19] MEDS: INSULIN GLARGINE,HUM.REC.ANLOG 100 UNITS/ML SQ SCH ×2 (09:05→21:11)
[2020-10-19 10:11] LABS: GLUCOSE,POINT OF CARE 173 MG/DL (70-110)
[2020-10-19 11:32] LABS: GLUCOSE,POINT OF CARE 166 MG/DL (70-110)
[2020-10-19 12:00] VITALS: BP 133/44
[2020-10-19] MEDS: DAPTOMYCIN 500 MG in SODIUM CHLORIDE 0.9% 50 ML IV SCH (15:07)
[2020-10-19 16:00] VITALS: BP 135/47
[2020-10-19] MEDS: FLUCONAZOLE 400 MG/NACL ISOOSM 200 ML IV SCH (16:19)
[2020-10-19 18:13] LABS: GLUCOSE,POINT OF CARE 189 MG/DL (70-110)
[2020-10-19 20:00] VITALS: BP 148/50
[2020-10-19] MEDS: QUEtiapine FUMARATE 25 MG TABLET NG SCH (21:15)
[2020-10-19 23:21] LABS: GLUCOSE,POINT OF CARE 167 MG/DL (70-110)
[2020-10-20] VITALS: BP 143/47
[2020-10-20] MEDS: METOCLOPRAMIDE HCL 5 MG/ML 2 ML VIAL IVP SCH ×4 (01:00→20:37)
[2020-10-20] MEDS: FentaNYL CIT 1000MCG/D5%-WATER 100 ML IV PRN ×3 (01:28→18:39)
[2020-10-20 04:00] VITALS: BP 123/47
[2020-10-20] MEDS: CeFAZolin 1 GM/DEXTROSE 50 ML IV SCH (04:53)
[2020-10-20 05:50] LABS: GLUCOSE,POINT OF CARE 153 MG/DL (70-110)
[2020-10-20] MEDS: INSULIN LISPRO 100 UNITS/ML SQ PRN ×4 (06:09→23:55)
[2020-10-20 06:39] LABS: BASOPHILS % (AUTO) 0.3 % (0.0-2.0); EOSINOPHILS % (AUTO) 0.4 % (1.0-6.0); HEMATOCRIT 26.5 % (41-53); HEMOGLOBIN 8.6 g/dL (13.5-17.5); LYMPHOCYTES # (AUTO) 0.9 K/uL (1.0-4.8); LYMPHOCYTES % (AUTO) 6.2 % (22.0-44.0); MEAN CORPUSCULAR HEMOGLOBIN 30.4 pg (26.0-34.0); MEAN CORPUSCULAR HGB CONC 32.5 G/dL (31.0-37.0); MEAN CORPUSCULAR VOLUME 94 fL (80-100); MONOCYTES # (AUTO) 0.5 K/uL (0.1-1.0); MONOCYTES % (AUTO) 3.5 % (2.0-9.0); NEUTROPHILS # (AUTO) 13.3 K/uL (1.8-7.7); PLATELET COUNT (AUTO) 426 K/uL (150-450); RED BLOOD CELL COUNT(AUTO) 2.84 MIL/uL (4.50-5.90); RED CELL DISTRIBUTION WIDTH 15.8 % (11.5-14.5)
[2020-10-20 06:59] LABS: C-REACTIVE PROTEIN QUANT 7.76 mg/dL (0.00-0.30); CREATININE 1.35 mg/dL (0.60-1.30); POTASSIUM 4.5 mmol/L (3.5-5.1)
[2020-10-20 07:24] LABS: NEUTROPHILS % (AUTO) 89.6 % (40.0-70.0)
[2020-10-20 08:00] VITALS: BP 128/49
[2020-10-20] MEDS: FAMOTIDINE 20 MG TABLET PO SCH (08:29)
[2020-10-20] MEDS: DIAZEPAM 5 MG TABLET NG SCH ×2 (08:29→20:36)
[2020-10-20] MEDS: DEXAMETHASONE SOD PHOS 4 MG/ML VIAL IVP SCH (08:29)
[2020-10-20] MEDS: ZINC SULFATE 220 MG CAPSULE PO SCH (08:29)
[2020-10-20] MEDS: ASCORBIC ACID 500 MG TABLET PO SCH (08:29)
[2020-10-20] MEDS: CHOLECALCIFEROL (VIT D3) 1,000 UNITS [25 MCG] TABLET PO SCH (08:30)
[2020-10-20] MEDS: DOCUSATE SODIUM 100 MG CAPSULE PO SCH ×2 (08:30→20:37)
[2020-10-20] MEDS: APIXABAN 5 MG TABLET PO SCH ×2 (08:30→20:37)
[2020-10-20] MEDS: AMINO ACIDS/PROTEIN HYDROLYS 30 ML TUBE GT SCH ×3 (08:31→17:50)
[2020-10-20] MEDS: EPOETIN ALFA 10,000 UNITS/ML VIAL SQ SCH (08:31)
[2020-10-20] MEDS: INSULIN GLARGINE,HUM.REC.ANLOG 100 UNITS/ML SQ SCH ×2 (08:36→20:38)
[2020-10-20] MEDS: PROPOFOL 1000 MG/ISO-OSM 100 ML IV PRN ×3 (09:29→17:30)
[2020-10-20] MEDS: NOREPINEPHRINE 4 MG/D5%-WATER 250 ML IV PRN (09:30)
[2020-10-20 11:08] LABS: GLUCOSE,POINT OF CARE 167 MG/DL (70-110)
[2020-10-20 12:00] VITALS: BP 129/47
[2020-10-20] MEDS: CISATRACURIUM BESYLATE 100 MG in DEXTROSE 5%-WATER 240 ML IV PRN ×2 (12:09→16:28)
[2020-10-20] MEDS: CefoTEtan DISOD 2 GM/DEXTROSE 50 ML IV SCH ×2 (12:19→20:24)
[2020-10-20] MEDS: DAPTOMYCIN 500 MG in SODIUM CHLORIDE 0.9% 50 ML IV SCH (15:05)
[2020-10-20] MEDS: FLUCONAZOLE 400 MG/NACL ISOOSM 200 ML IV SCH (15:53)
[2020-10-20 16:00] VITALS: BP 117/47
[2020-10-20 16:05] LABS: GLUCOSE,POINT OF CARE 173 MG/DL (70-110)
[2020-10-20 20:00] VITALS: BP 121/50
[2020-10-20 20:02] LABS: GLUCOSE,POINT OF CARE 173 MG/DL (70-110)
[2020-10-20] MEDS: QUEtiapine FUMARATE 25 MG TABLET NG SCH (21:35)
[2020-10-20] MEDS: MIDAZOLAM HCL 100 MG in DEXTROSE 5%-WATER 180 ML IV PRN (22:45)
[2020-10-20] MEDS ORDERED: SODIUM CHLORIDE 0.9% 500 ML IV ONE (22:57)
[2020-10-21] MEDS: PROPOFOL 1000 MG/ISO-OSM 100 ML IV PRN ×7 (00:19→23:17)
[2020-10-21 00:53] LABS: GLUCOSE,POINT OF CARE 190 MG/DL (70-110)
[2020-10-21 00:53] LABS: GLUCOSE,POINT OF CARE 186 MG/DL (70-110)
[2020-10-21] MEDS: CISATRACURIUM BESYLATE 100 MG in DEXTROSE 5%-WATER 240 ML IV PRN ×4 (02:07→18:04)
[2020-10-21 04:00] VITALS: BP 145/54
[2020-10-21] MEDS: CefoTEtan DISOD 2 GM/DEXTROSE 50 ML IV SCH ×3 (04:16→20:26)
[2020-10-21] MEDS: INSULIN LISPRO 100 UNITS/ML SQ PRN ×4 (05:21→23:42)
[2020-10-21 05:52] LABS: HEMOGLOBIN 7.9 g/dL (13.5-17.5); MEAN CORPUSCULAR HEMOGLOBIN 30.8 pg (26.0-34.0); MEAN CORPUSCULAR HGB CONC 33.1 G/dL (31.0-37.0); MEAN CORPUSCULAR VOLUME 93 fL (80-100); PLATELET COUNT (AUTO) 364 K/uL (150-450); RED BLOOD CELL COUNT(AUTO) 2.57 MIL/uL (4.50-5.90); RED CELL DISTRIBUTION WIDTH 15.7 % (11.5-14.5)
[2020-10-21 06:14] LABS: ALBUMIN 1.3 g/dL (3.4-5.0); BILIRUBIN,TOTAL 0.4 mg/dL (0.1-1.0); CALCIUM, TOTAL 7.9 mg/dL (8.8-10.5); CREATININE 1.34 mg/dL (0.60-1.30); POTASSIUM 4.3 mmol/L (3.5-5.1); TOTAL PROTEIN, SERUM 5.1 g/dL (6.4-8.2)
[2020-10-21 07:03] LABS: GLUCOSE,POINT OF CARE 168 MG/DL (70-110)
[2020-10-21 08:00] VITALS: BP 149/56
[2020-10-21 08:30] LABS: BAND NEUTROPHILS % (MANUAL) 1 % (0-5); LYMPHOCYTES % (MANUAL) 10 % (22-44); METAMYELOCYTES % 1 % (0-0); MONOCYTES % (MANUAL) 3 % (2-9); MYELOCYTES % 3 % (0-0); SEGMENTED NEUTROPHILS % 82 % (40-70)
[2020-10-21] MEDS: CHOLECALCIFEROL (VIT D3) 1,000 UNITS [25 MCG] TABLET PO SCH (08:31)
[2020-10-21] MEDS: DOCUSATE SODIUM 100 MG CAPSULE PO SCH ×2 (08:31→20:26)
[2020-10-21] MEDS: METOCLOPRAMIDE HCL 5 MG/ML 2 ML VIAL IVP SCH ×3 (08:31→20:26)
[2020-10-21] MEDS: ASCORBIC ACID 500 MG TABLET PO SCH (08:31)
[2020-10-21] MEDS: ZINC SULFATE 220 MG CAPSULE PO SCH (08:31)
[2020-10-21] MEDS: FAMOTIDINE 20 MG TABLET PO SCH (08:31)
[2020-10-21] MEDS: AMINO ACIDS/PROTEIN HYDROLYS 30 ML TUBE GT SCH ×3 (08:32→17:31)
[2020-10-21] MEDS: DIAZEPAM 5 MG TABLET NG SCH ×2 (08:32→20:26)
[2020-10-21] MEDS: APIXABAN 5 MG TABLET PO SCH ×2 (08:32→20:26)
[2020-10-21] MEDS: INSULIN GLARGINE,HUM.REC.ANLOG 100 UNITS/ML SQ SCH ×2 (08:39→20:00)
[2020-10-21] MEDS: DEXAMETHASONE SOD PHOS 4 MG/ML VIAL IVP SCH (08:40)
[2020-10-21] MEDS: FentaNYL CIT 1000MCG/D5%-WATER 100 ML IV PRN ×2 (10:13→17:10)
[2020-10-21 11:46] LABS: GLUCOSE,POINT OF CARE 152 MG/DL (70-110)
[2020-10-21 12:00] VITALS: BP 155/54
[2020-10-21] MEDS: DAPTOMYCIN 500 MG in SODIUM CHLORIDE 0.9% 50 ML IV SCH (14:09)
[2020-10-21] MEDS: FLUCONAZOLE 400 MG/NACL ISOOSM 200 ML IV SCH (15:45)
[2020-10-21 16:00] VITALS: BP 159/60
[2020-10-21 18:02] LABS: GLUCOSE,POINT OF CARE 197 MG/DL (70-110)
[2020-10-21] MEDS: MIDAZOLAM HCL 100 MG in DEXTROSE 5%-WATER 180 ML IV PRN (18:03)
[2020-10-21 20:00] VITALS: BP 156/61
[2020-10-21] MEDS: QUEtiapine FUMARATE 25 MG TABLET NG SCH (20:27)
[2020-10-21] MEDS ORDERED: SODIUM CHLORIDE 0.9% 250 ML IV ONE (20:30)
[2020-10-21 21:41] LABS: GLUCOSE,POINT OF CARE 190 MG/DL (70-110)
[2020-10-22] VITALS (7 sets, daily range): BP systolic 104–143; BP diastolic 38–58
[2020-10-22 00:18] LABS: GLUCOSE,POINT OF CARE 201 MG/DL (70-110)
[2020-10-22] MEDS: CISATRACURIUM BESYLATE 100 MG in DEXTROSE 5%-WATER 240 ML IV PRN ×4 (01:01→20:47)
[2020-10-22] MEDS: FentaNYL CIT 1000MCG/D5%-WATER 100 ML IV PRN ×3 (02:09→16:42)
[2020-10-22] MEDS: CefoTEtan DISOD 2 GM/DEXTROSE 50 ML IV SCH ×3 (04:00→21:33)
[2020-10-22 05:59] LABS: CALCIUM, TOTAL 7.7 mg/dL (8.8-10.5); CREATININE 1.25 mg/dL (0.60-1.30); PHOSPHORUS 2.8 mg/dL (2.5-4.9); POTASSIUM 4.6 mmol/L (3.5-5.1)
[2020-10-22] MEDS: INSULIN LISPRO 100 UNITS/ML SQ PRN ×3 (06:16→18:11)
[2020-10-22 07:30] LABS: GLUCOSE,POINT OF CARE 179 MG/DL (70-110)
[2020-10-22] MEDS: PROPOFOL 1000 MG/ISO-OSM 100 ML IV PRN ×4 (07:35→17:56)
[2020-10-22] MEDS: AMINO ACIDS/PROTEIN HYDROLYS 30 ML TUBE GT SCH ×3 (08:08→16:42)
[2020-10-22] MEDS: EPOETIN ALFA 10,000 UNITS/ML VIAL SQ SCH (08:09)
[2020-10-22] MEDS: CHOLECALCIFEROL (VIT D3) 1,000 UNITS [25 MCG] TABLET PO SCH (08:09)
[2020-10-22] MEDS: METOCLOPRAMIDE HCL 5 MG/ML 2 ML VIAL IVP SCH ×2 (08:09→16:03)
[2020-10-22] MEDS: DEXAMETHASONE SOD PHOS 4 MG/ML VIAL IVP SCH (08:09)
[2020-10-22] MEDS: FAMOTIDINE 20 MG TABLET PO SCH (08:10)
[2020-10-22] MEDS: DOCUSATE SODIUM 100 MG CAPSULE PO SCH ×2 (08:10→21:32)
[2020-10-22] MEDS: DIAZEPAM 5 MG TABLET NG SCH ×2 (08:10→21:33)
[2020-10-22] MEDS: APIXABAN 5 MG TABLET PO SCH ×2 (08:10→21:33)
[2020-10-22] MEDS: ASCORBIC ACID 500 MG TABLET PO SCH (08:10)
[2020-10-22] MEDS: ZINC SULFATE 220 MG CAPSULE PO SCH (08:10)
[2020-10-22] MEDS: INSULIN GLARGINE,HUM.REC.ANLOG 100 UNITS/ML SQ SCH ×2 (08:11→21:35)
[2020-10-22] MEDS: MIDAZOLAM HCL 100 MG in DEXTROSE 5%-WATER 180 ML IV PRN (12:11)
[2020-10-22 12:53] LABS: GLUCOSE,POINT OF CARE 177 MG/DL (70-110)
[2020-10-22] MEDS: DAPTOMYCIN 500 MG in SODIUM CHLORIDE 0.9% 50 ML IV SCH (15:08)
[2020-10-22] MEDS: FLUCONAZOLE 400 MG/NACL ISOOSM 200 ML IV SCH (16:03)
[2020-10-22 18:42] LABS: GLUCOSE,POINT OF CARE 185 MG/DL (70-110)
[2020-10-22 20:38] LABS: GLUCOSE,POINT OF CARE 180 MG/DL (70-110)
[2020-10-22] MEDS: QUEtiapine FUMARATE 25 MG TABLET NG SCH (21:33)
[2020-10-23] VITALS (8 sets, daily range): BP systolic 104–158; BP diastolic 39–52
[2020-10-23] MEDS: FentaNYL CIT 1000MCG/D5%-WATER 100 ML IV PRN ×4 (00:10→19:00)
[2020-10-23] MEDS: METOCLOPRAMIDE HCL 5 MG/ML 2 ML VIAL IVP SCH ×3 (00:11→15:52)
[2020-10-23] MEDS: PROPOFOL 1000 MG/ISO-OSM 100 ML IV PRN ×5 (00:36→21:19)
[2020-10-23] MEDS: INSULIN LISPRO 100 UNITS/ML SQ PRN ×4 (00:38→18:39)
[2020-10-23 01:35] LABS: GLUCOSE,POINT OF CARE 171 MG/DL (70-110)
[2020-10-23] MEDS: CISATRACURIUM BESYLATE 100 MG in DEXTROSE 5%-WATER 240 ML IV PRN ×4 (03:23→21:46)
[2020-10-23] MEDS: CefoTEtan DISOD 2 GM/DEXTROSE 50 ML IV SCH ×3 (04:27→21:32)
[2020-10-23 06:20] LABS: HEMATOCRIT 23.2 % (41-53); HEMOGLOBIN 7.5 g/dL (13.5-17.5); MEAN CORPUSCULAR HEMOGLOBIN 30.6 pg (26.0-34.0); MEAN CORPUSCULAR HGB CONC 32.5 G/dL (31.0-37.0); MEAN CORPUSCULAR VOLUME 94 fL (80-100); PLATELET COUNT (AUTO) 370 K/uL (150-450); RED BLOOD CELL COUNT(AUTO) 2.46 MIL/uL (4.50-5.90); RED CELL DISTRIBUTION WIDTH 15.9 % (11.5-14.5)
[2020-10-23 06:37] LABS: ALBUMIN 1.1 g/dL (3.4-5.0); BILIRUBIN,TOTAL 0.3 mg/dL (0.1-1.0); C-REACTIVE PROTEIN QUANT 3.17 mg/dL (0.00-0.30); CALCIUM, TOTAL 7.7 mg/dL (8.8-10.5); CREATININE 1.25 mg/dL (0.60-1.30); POTASSIUM 4.2 mmol/L (3.5-5.1); TOTAL PROTEIN, SERUM 4.7 g/dL (6.4-8.2)
[2020-10-23] MEDS: MIDAZOLAM HCL 100 MG in DEXTROSE 5%-WATER 180 ML IV PRN (07:20)
[2020-10-23 08:09] LABS: BAND NEUTROPHILS % (MANUAL) 2 % (0-5); LYMPHOCYTES % (MANUAL) 7 % (22-44); MONOCYTES % (MANUAL) 4 % (2-9); SEGMENTED NEUTROPHILS % 87 % (40-70)
[2020-10-23] MEDS: FAMOTIDINE 20 MG TABLET PO SCH (08:20)
[2020-10-23] MEDS: ASCORBIC ACID 500 MG TABLET PO SCH (08:21)
[2020-10-23] MEDS: DIAZEPAM 5 MG TABLET NG SCH ×2 (08:21→21:32)
[2020-10-23] MEDS: DEXAMETHASONE SOD PHOS 4 MG/ML VIAL IVP SCH (08:21)
[2020-10-23] MEDS: ZINC SULFATE 220 MG CAPSULE PO SCH (08:21)
[2020-10-23] MEDS: CHOLECALCIFEROL (VIT D3) 1,000 UNITS [25 MCG] TABLET PO SCH (08:22)
[2020-10-23] MEDS: AMINO ACIDS/PROTEIN HYDROLYS 30 ML TUBE GT SCH ×3 (08:23→17:42)
[2020-10-23] MEDS: INSULIN GLARGINE,HUM.REC.ANLOG 100 UNITS/ML SQ SCH ×2 (08:29→21:33)
[2020-10-23] MEDS: DOCUSATE SODIUM 100 MG CAPSULE PO SCH ×2 (08:29→21:32)
[2020-10-23 11:01] LABS: GLUCOSE,POINT OF CARE 176 MG/DL (70-110)
[2020-10-23] MEDS ORDERED: FUROSEMIDE 20 MG/2 ML VIAL IVP SCH (13:15)
[2020-10-23] MEDS: DAPTOMYCIN 500 MG in SODIUM CHLORIDE 0.9% 50 ML IV SCH (15:12)
[2020-10-23] MEDS: FLUCONAZOLE 400 MG/NACL ISOOSM 200 ML IV SCH (15:53)
[2020-10-23 16:11] LABS: GLUCOSE,POINT OF CARE 165 MG/DL (70-110)
[2020-10-23 18:20] LABS: GLUCOSE,POINT OF CARE 202 MG/DL (70-110)
[2020-10-23] MEDS: QUEtiapine FUMARATE 25 MG TABLET NG SCH (21:32)
[2020-10-24] VITALS: BP 108/41
[2020-10-24] MEDS: METOCLOPRAMIDE HCL 5 MG/ML 2 ML VIAL IVP SCH ×4 (00:22→23:23)
[2020-10-24] MEDS: MIDAZOLAM HCL 100 MG in DEXTROSE 5%-WATER 180 ML IV PRN ×2 (00:23→17:44)
[2020-10-24 00:38] LABS: GLUCOSE,POINT OF CARE 179 MG/DL (70-110)
[2020-10-24] MEDS: FentaNYL CIT 1000MCG/D5%-WATER 100 ML IV PRN ×4 (02:44→20:24)
[2020-10-24] MEDS: PROPOFOL 1000 MG/ISO-OSM 100 ML IV PRN ×5 (03:01→23:24)
[2020-10-24] MEDS: CISATRACURIUM BESYLATE 100 MG in DEXTROSE 5%-WATER 240 ML IV PRN ×3 (04:21→17:45)
[2020-10-24] MEDS: CefoTEtan DISOD 2 GM/DEXTROSE 50 ML IV SCH ×3 (04:22→23:23)
[2020-10-24 04:37] VITALS: BP 117/42
[2020-10-24 05:39] LABS: GLUCOSE,POINT OF CARE 180 MG/DL (70-110)
[2020-10-24 06:31] LABS: CREATININE 1.42 mg/dL (0.60-1.30); MAGNESIUM 1.9 mg/dL (1.80-2.40); PHOSPHORUS 2.9 mg/dL (2.5-4.9); POTASSIUM 3.9 mmol/L (3.5-5.1)
[2020-10-24 08:00] VITALS: BP 107/41
[2020-10-24] MEDS ORDERED: SODIUM CHLORIDE 0.9% 500 ML IV ONE ×2 (08:22→13:41)
[2020-10-24] MEDS: INSULIN GLARGINE,HUM.REC.ANLOG 100 UNITS/ML SQ SCH ×2 (08:41→20:23)
[2020-10-24] MEDS: FAMOTIDINE 20 MG TABLET PO SCH (08:42)
[2020-10-24] MEDS: DIAZEPAM 5 MG TABLET NG SCH ×2 (08:42→20:25)
[2020-10-24] MEDS: CHOLECALCIFEROL (VIT D3) 1,000 UNITS [25 MCG] TABLET PO SCH (08:43)
[2020-10-24] MEDS: FUROSEMIDE 20 MG/2 ML VIAL IVP SCH (08:43)
[2020-10-24] MEDS: DEXAMETHASONE SOD PHOS 4 MG/ML VIAL IVP SCH (08:43)
[2020-10-24] MEDS: ZINC SULFATE 220 MG CAPSULE PO SCH (08:44)
[2020-10-24] MEDS: AMINO ACIDS/PROTEIN HYDROLYS 30 ML TUBE GT SCH ×3 (08:44→16:58)
[2020-10-24] MEDS: DOCUSATE SODIUM 100 MG CAPSULE PO SCH ×2 (08:44→20:24)
[2020-10-24] MEDS: ASCORBIC ACID 500 MG TABLET PO SCH (08:44)
[2020-10-24 10:59] LABS: BASOPHILS % (AUTO) 0.4 % (0.0-2.0); EOSINOPHILS % (AUTO) 0.9 % (1.0-6.0); HEMATOCRIT 23.6 % (41-53); HEMOGLOBIN 7.7 g/dL (13.5-17.5); LYMPHOCYTES # (AUTO) 1.1 K/uL (1.0-4.8); LYMPHOCYTES % (AUTO) 7.4 % (22.0-44.0); MEAN CORPUSCULAR HEMOGLOBIN 30.9 pg (26.0-34.0); MEAN CORPUSCULAR HGB CONC 32.5 G/dL (31.0-37.0); MEAN CORPUSCULAR VOLUME 95 fL (80-100); MONOCYTES # (AUTO) 0.5 K/uL (0.1-1.0); MONOCYTES % (AUTO) 3.3 % (2.0-9.0); NEUTROPHILS # (AUTO) 12.6 K/uL (1.8-7.7); PLATELET COUNT (AUTO) 376 K/uL (150-450); RED BLOOD CELL COUNT(AUTO) 2.48 MIL/uL (4.50-5.90); RED CELL DISTRIBUTION WIDTH 16.7 % (11.5-14.5)
[2020-10-24 12:00] VITALS: BP 123/48
[2020-10-24] MEDS: INSULIN LISPRO 100 UNITS/ML SQ PRN ×2 (12:11→17:46)
[2020-10-24 12:18] LABS: GLUCOSE,POINT OF CARE 169 MG/DL (70-110)
[2020-10-24] MEDS: DAPTOMYCIN 500 MG in SODIUM CHLORIDE 0.9% 50 ML IV SCH (14:57)
[2020-10-24] MEDS: FLUCONAZOLE 400 MG/NACL ISOOSM 200 ML IV SCH (15:52)
[2020-10-24 16:00] VITALS: BP 121/45
[2020-10-24 17:56] LABS: GLUCOSE,POINT OF CARE 170 MG/DL (70-110)
[2020-10-24 20:00] VITALS: BP 110/47
[2020-10-24] MEDS: QUEtiapine FUMARATE 25 MG TABLET NG SCH (20:25)
[2020-10-24] MEDS: APIXABAN 2.5 MG TABLET PO SCH (20:25)
[2020-10-25] VITALS: BP 132/51
[2020-10-25 02:16] LABS: GLUCOSE,POINT OF CARE 158 MG/DL (70-110)
[2020-10-25 04:00] VITALS: BP 122/49
[2020-10-25] MEDS: FentaNYL CIT 1000MCG/D5%-WATER 100 ML IV PRN ×3 (05:31→22:37)
[2020-10-25] MEDS: FUROSEMIDE 20 MG/2 ML VIAL IVP SCH (05:32)
[2020-10-25] MEDS: PROPOFOL 1000 MG/ISO-OSM 100 ML IV PRN ×4 (05:32→22:37)
[2020-10-25 05:49] LABS: BASOPHILS % (AUTO) 0.6 % (0.0-2.0); EOSINOPHILS % (AUTO) 0.5 % (1.0-6.0); HEMATOCRIT 26.6 % (41-53); HEMOGLOBIN 8.7 g/dL (13.5-17.5); LYMPHOCYTES # (AUTO) 1.4 K/uL (1.0-4.8); MEAN CORPUSCULAR HEMOGLOBIN 31.1 pg (26.0-34.0); MEAN CORPUSCULAR HGB CONC 32.7 G/dL (31.0-37.0); MEAN CORPUSCULAR VOLUME 95 fL (80-100); MONOCYTES # (AUTO) 0.9 K/uL (0.1-1.0); MONOCYTES % (AUTO) 4.3 % (2.0-9.0); PLATELET COUNT (AUTO) 432 K/uL (150-450); RED BLOOD CELL COUNT(AUTO) 2.79 MIL/uL (4.50-5.90); RED CELL DISTRIBUTION WIDTH 16.7 % (11.5-14.5)
[2020-10-25 05:53] LABS: NEUTROPHILS % (AUTO) 87.6 % (40.0-70.0)
[2020-10-25 06:06] LABS: CREATININE 1.48 mg/dL (0.60-1.30); MAGNESIUM 2.1 mg/dL (1.80-2.40); PHOSPHORUS 4.2 mg/dL (2.5-4.9); POTASSIUM 4.1 mmol/L (3.5-5.1)
[2020-10-25] MEDS: CISATRACURIUM BESYLATE 100 MG in DEXTROSE 5%-WATER 240 ML IV PRN ×2 (06:49→19:54)
[2020-10-25] MEDS: INSULIN LISPRO 100 UNITS/ML SQ PRN ×2 (07:09→18:31)
[2020-10-25 08:00] VITALS: BP 130/40
[2020-10-25] MEDS: EPOETIN ALFA 10,000 UNITS/ML VIAL SQ SCH (08:21)
[2020-10-25] MEDS: CHOLECALCIFEROL (VIT D3) 1,000 UNITS [25 MCG] TABLET PO SCH (08:21)
[2020-10-25] MEDS: FAMOTIDINE 20 MG TABLET PO SCH (08:21)
[2020-10-25] MEDS: AMINO ACIDS/PROTEIN HYDROLYS 30 ML TUBE GT SCH ×3 (08:21→16:42)
[2020-10-25] MEDS: ZINC SULFATE 220 MG CAPSULE PO SCH (08:22)
[2020-10-25] MEDS: DEXAMETHASONE SOD PHOS 4 MG/ML VIAL IVP SCH (08:22)
[2020-10-25] MEDS: METOCLOPRAMIDE HCL 5 MG/ML 2 ML VIAL IVP SCH ×2 (08:22→16:42)
[2020-10-25] MEDS: APIXABAN 2.5 MG TABLET PO SCH ×2 (08:22→20:07)
[2020-10-25] MEDS: ASCORBIC ACID 500 MG TABLET PO SCH (08:22)
[2020-10-25] MEDS: DIAZEPAM 5 MG TABLET NG SCH ×2 (08:22→20:07)
[2020-10-25] MEDS: DOCUSATE SODIUM 100 MG CAPSULE PO SCH ×2 (08:23→20:03)
[2020-10-25] MEDS: INSULIN GLARGINE,HUM.REC.ANLOG 100 UNITS/ML SQ SCH ×2 (08:25→20:10)
[2020-10-25] MEDS: MIDAZOLAM HCL 100 MG in DEXTROSE 5%-WATER 180 ML IV PRN (09:34)
[2020-10-25 11:54] LABS: GLUCOSE,POINT OF CARE 131 MG/DL (70-110)
[2020-10-25 12:00] VITALS: BP 146/47
[2020-10-25] MEDS: CefoTEtan DISOD 2 GM/DEXTROSE 50 ML IV SCH (13:31)
[2020-10-25] MEDS: MetroNIDAZOLE 500 MG/NACL 100 ML IV SCH ×2 (13:31→20:07)
[2020-10-25 14:50] LABS: APPEARANCE,URINE CLOUDY (CLEAR); BILIRUBIN,URINE NEGATIVE (NEGATIVE); GLUCOSE, URINE (UA) NEGATIVE (NEGATIVE); KETONES,URINE NEGATIVE (NEGATIVE); LEUKOCYTE ESTERASE ,URINE NEGATIVE (NEGATIVE); NITRATE,URINE NEGATIVE (NEGATIVE); OCCULT BLOOD,URINE MODERATE (NEGATIVE); PH,URINE 5.5 (5.0-8.0); PROTEIN,URINE TRACE (NEGATIVE)
[2020-10-25] MEDS: DAPTOMYCIN 500 MG in SODIUM CHLORIDE 0.9% 50 ML IV SCH (14:55)
[2020-10-25 15:19] LABS: BACTERIA,URINE Rare /HPF (None Seen); SQUAMOUS EPITHELIAL CELL,UR Rare /LPF (None Seen); YEAST,URINE Moderate /HPF (None Seen)
[2020-10-25 16:00] VITALS: BP 114/42
[2020-10-25] MEDS: FLUCONAZOLE 400 MG/NACL ISOOSM 200 ML IV SCH (16:42)
[2020-10-25 18:27] LABS: GLUCOSE,POINT OF CARE 176 MG/DL (70-110)
[2020-10-25 20:00] VITALS: BP 146/55
[2020-10-25] MEDS: QUEtiapine FUMARATE 25 MG TABLET NG SCH (20:07)
[2020-10-26] VITALS: BP 109/45
[2020-10-26] MEDS: CefoTEtan DISOD 2 GM/DEXTROSE 50 ML IV SCH ×2 (00:21→12:00)
[2020-10-26] MEDS: METOCLOPRAMIDE HCL 5 MG/ML 2 ML VIAL IVP SCH ×3 (00:21→16:00)
[2020-10-26 02:09] LABS: GLUCOSE,POINT OF CARE 127 MG/DL (70-110)
[2020-10-26 04:00] VITALS: BP 136/53
[2020-10-26] MEDS: MetroNIDAZOLE 500 MG/NACL 100 ML IV SCH ×2 (05:35→14:42)
[2020-10-26] MEDS: MIDAZOLAM HCL 100 MG in DEXTROSE 5%-WATER 180 ML IV PRN (05:37)
[2020-10-26 05:48] LABS: HEMATOCRIT 27.8 % (41-53); HEMOGLOBIN 8.9 g/dL (13.5-17.5); MEAN CORPUSCULAR HEMOGLOBIN 30.4 pg (26.0-34.0); MEAN CORPUSCULAR HGB CONC 31.9 G/dL (31.0-37.0); MEAN CORPUSCULAR VOLUME 95 fL (80-100); PLATELET COUNT (AUTO) 426 K/uL (150-450); RED BLOOD CELL COUNT(AUTO) 2.92 MIL/uL (4.50-5.90); RED CELL DISTRIBUTION WIDTH 16.8 % (11.5-14.5)
[2020-10-26 06:16] LABS: ALBUMIN 1.3 g/dL (3.4-5.0); BILIRUBIN,TOTAL 0.4 mg/dL (0.1-1.0); CALCIUM, TOTAL 7.9 mg/dL (8.8-10.5); CREATININE 1.33 mg/dL (0.60-1.30); TOTAL PROTEIN, SERUM 5.4 g/dL (6.4-8.2)
[2020-10-26] MEDS: INSULIN GLARGINE,HUM.REC.ANLOG 100 UNITS/ML SQ SCH (09:00)
[2020-10-26] MEDS ORDERED: VECURONIUM BROMIDE 10 MG/VIAL ONE (09:04)
[2020-10-26] MEDS: CISATRACURIUM BESYLATE 100 MG in DEXTROSE 5%-WATER 240 ML IV PRN (09:10)
[2020-10-26] MEDS: PROPOFOL 1000 MG/ISO-OSM 100 ML IV PRN (09:50)
[2020-10-26] MEDS: DOCUSATE SODIUM 100 MG CAPSULE PO SCH (09:52)
[2020-10-26] MEDS: APIXABAN 2.5 MG TABLET PO SCH (09:52)
[2020-10-26] MEDS: ZINC SULFATE 220 MG CAPSULE PO SCH (09:52)
[2020-10-26] MEDS: DEXAMETHASONE SOD PHOS 4 MG/ML VIAL IVP SCH (09:52)
[2020-10-26] MEDS: AMINO ACIDS/PROTEIN HYDROLYS 30 ML TUBE GT SCH ×3 (09:53→17:30)
[2020-10-26] MEDS: DIAZEPAM 5 MG TABLET NG SCH (09:53)
[2020-10-26] MEDS: FAMOTIDINE 20 MG TABLET PO SCH (09:53)
[2020-10-26] MEDS: CHOLECALCIFEROL (VIT D3) 1,000 UNITS [25 MCG] TABLET PO SCH (09:53)
[2020-10-26] MEDS: ASCORBIC ACID 500 MG TABLET PO SCH (09:54)
[2020-10-26 10:00] VITALS: BP 134/49
[2020-10-26 11:26] LABS: BAND NEUTROPHILS % (MANUAL) 5 % (0-5); EOSINOPHILS % (MANUAL) 1 % (1-6); LYMPHOCYTES % (MANUAL) 5 % (22-44); METAMYELOCYTES % 3 % (0-0); MONOCYTES % (MANUAL) 10 % (2-9); SEGMENTED NEUTROPHILS % 76 % (40-70)
[2020-10-26 12:00] VITALS: BP 110/43
[2020-10-26 16:00] VITALS: BP 103/46
[2020-10-26] MEDS: FLUCONAZOLE 400 MG/NACL ISOOSM 200 ML IV SCH (16:00)
[2020-10-26] MEDS: DAPTOMYCIN 500 MG in SODIUM CHLORIDE 0.9% 50 ML IV SCH (16:40)
[2020-10-26 18:14] LABS: GLUCOSE,POINT OF CARE 84 MG/DL (70-110)
[2020-10-27] MEDS ORDERED: FUROSEMIDE 20 MG TABLET PO SCH (09:00)
[2020-10-27] MEDS ORDERED: DEXAMETHASONE 2 MG TABLET PO SCH (09:00)
[2020-11-01] MEDS ORDERED: DEXAMETHASONE 4 MG TABLET PO SCH (09:00)
[2020-11-06] MEDS ORDERED: DEXAMETHASONE 2 MG TABLET PO SCH (09:00)
[2020-11-11] MEDS ORDERED: DEXAMETHASONE 2 MG TABLET PO SCH (09:00)
[2020-11-16] MEDS ORDERED: DEXAMETHASONE 1 MG TABLET PO SCH (09:00)
== END 2020-10-26 18:50 | DRG 870 ==
LOC: EMS 20:04 → 5N 22:00 → ICU 09-26 11:23
PROVIDERS: ADMIT Internal Medicine; ATTEND Internal Medicine
PROC: XW033E5 Introduction of Remdesivir Anti-infective into Peripheral Vein, Percutaneous Approach, New Technology Group 5 (ICD-10-PCS; 2020-09-23)
PROC: 5A1955Z Respiratory Ventilation, Greater than 96 Consecutive Hours (ICD-10-PCS; principal; 2020-09-27)
PROC: 5A12012 Performance of Cardiac Output, Single, Manual (ICD-10-PCS; 2020-09-27)
PROC: 0T9B70Z Drainage of Bladder with Drainage Device, Via Natural or Artificial Opening (ICD-10-PCS; 2020-09-27)
PROC: 03HY32Z Insertion of Monitoring Device into Upper Artery, Percutaneous Approach (ICD-10-PCS; 2020-09-27)
PROC: 4A133B1 Monitoring of Arterial Pressure, Peripheral, Percutaneous Approach (ICD-10-PCS; 2020-09-27)
PROC: 4A133J1 Monitoring of Arterial Pulse, Peripheral, Percutaneous Approach (ICD-10-PCS; 2020-09-27)
PROC: 02HV33Z Insertion of Infusion Device into Superior Vena Cava, Percutaneous Approach (ICD-10-PCS; 2020-10-05)
PROC: B548ZZA Ultrasonography of Superior Vena Cava, Guidance (ICD-10-PCS; 2020-10-05)
PROC: 05HY33Z Insertion of Infusion Device into Upper Vein, Percutaneous Approach (ICD-10-PCS; 2020-10-05)
PROC: B54NZZA Ultrasonography of Left Upper Extremity Veins, Guidance (ICD-10-PCS; 2020-10-05)
PROC: 0W9930Z Drainage of Right Pleural Cavity with Drainage Device, Percutaneous Approach (ICD-10-PCS; 2020-10-16)
PROC: 0BH17EZ Insertion of Endotracheal Airway into Trachea, Via Natural or Artificial Opening (ICD-10-PCS; 2020-10-20)
DX: A41.02 Sepsis due to Methicillin resistant Staphylococcus aureus (principal); U07.1 COVID-19; J12.82 Pneumonia due to coronavirus disease 2019; G93.41 Metabolic encephalopathy; E43 Unspecified severe protein-calorie malnutrition; J80 Acute respiratory distress syndrome; N17.0 Acute kidney failure with tubular necrosis; R65.21 Severe sepsis with septic shock; E87.1 Hypo-osmolality and hyponatremia; J93.9 Pneumothorax, unspecified; Z66 Do not resuscitate; I46.9 Cardiac arrest, cause unspecified; E11.22 Type 2 diabetes mellitus with diabetic chronic kidney disease; J98.2 Interstitial emphysema; E78.5 Hyperlipidemia, unspecified; I25.10 Atherosclerotic heart disease of native coronary artery without angina pectoris; D63.8 Anemia in other chronic diseases classified elsewhere; N50.89 Other specified disorders of the male genital organs; I12.9 Hypertensive chronic kidney disease with stage 1 through stage 4 chronic kidney disease, or unspecified chronic kidney disease; D72.810 Lymphocytopenia; R13.10 Dysphagia, unspecified; N18.9 Chronic kidney disease, unspecified; I25.2 Old myocardial infarction; Z79.4 Long term (current) use of insulin; Z95.1 Presence of aortocoronary bypass graft; Z79.01 Long term (current) use of anticoagulants; Z68.34 Body mass index [BMI] 34.0-34.9, adult; Z79.899 Other long term (current) drug therapy
CPT/HCPCS: 36245; 36569; 36600; 76770; 76937; 82570; 82728; 82805; 83540; 83550; 83605; 83615; 83735; 84100; 84145; 84156; 84300; 84540; 85007; 85379; 86140; 87040; 87070; 87086; 87205; 87426; 87804; 92950; 93005; 93306; 94002; 94003; 94660; 99285; A9575; G0238; G0378; J0171; J0330; J0456; J0461; J0690; J0696; J0878; J0885; J1100; J1450; J1644; J1815; J1940; J2060; J2185; J2250; J2370; J2704; J2765; J3370; J3490; J7030; J7040; J7050; J7060; J8540; 36415-L1; 36415-TC; 71045-TC; 80202-TC; U0003